=== PATIENT | female | born 1955 | race African-American/Black ===

== ENCOUNTER 2017-08-22 10:26 | Inpatient (IN) | payer OTHER ==
[2017-08-22 10:32] VITALS: BMI 32.3
[2017-08-22] MEDS ORDERED: ALBUTEROL SO4 2.5/IPRATROPIUM 0.5 INH SOL 3 ML VIAL.NEB. NEB ONE ×4 (10:43→12:59)
--- NOTE | 2017-08-22 10:50 | PDOC ---
History of Present Illness - General History Source: Patient Exam Limitations: No Limitations - History of Present Illness Initial Comments: 08/22/17 12:13 Pt is a 42 yo F with a PMHx of Asthma, HTN, HLD, Bladder CA who presents to the ED with SOB that began last week. Patient initially had cold-like symptoms with productive cough (yellow sputum). Patient saw her PMD and was given abx. Patient s symptoms have progressively worsened with no relief and was sent into the ED for further evaluation. Upon evaluation, patient has conversational dyspnea and was saturating on 90% on room air. Patient was placed on non rebreather. Allergies: hydrochlorothiazide, Ciprofloxacin Past surgical history: Bladder sx Social history: Current everyday smoker PCP: Dr. Odonnell <Catrina Stewart - Last Filed: 08/22/17 12:52> <Amarilis Bills - Last Filed: 08/22/17 12:57> - General Chief Complaint: Shortness of Breath Stated Complaint: SOB Time Seen by Provider: 08/22/17 10:49 Past History <Catrina Stewart - Last Filed: 08/22/17 12:52> - Past Medical History Anemia: No Asthma: Yes (SECONDARY TO BRONCHITIS) Cancer: Yes (BLADDER) Cardiac Disorders: No CVA: No COPD: No CHF: No Dementia: No Diabetes: No GI Disorders: No Disorders: No HTN: Yes Hypercholesterolemia: Yes Liver Disease: No Seizures: No Thyroid Disease: No - Surgical History Appendectomy: No Cardiac Surgery: No Cholecystectomy: No Lung Surgery: No Neurologic Surgery: No Orthopedic Surgery: No - Suicide/Smoking/Psychosocial Hx Smoking History: Current every day smoker Number of Cigarettes Smoked Daily: 5 Information on smoking cessation initiated: Yes 'Breaking Loose' booklet given: 08/22/17 Hx Alcohol Use: No Drug/Substance Use Hx: No Substance Use Type: None Hx Substance Use Treatment: No <Amarilis Bills - Last Filed: 08/22/17 12:57> - Past Medical History Allergies/Adverse Reactions: Allergies Allergy/AdvReac Type Severity Reaction Status Date / Time ciprofloxacin [From Cipro] Allergy Severe Itching Verified 08/22/17 10:32 ciprofloxacin HCl Allergy Severe Itching Verified 08/22/17 10:32 [From Cipro] hydrochlorothiazide Allergy Severe Itching Verified 08/22/17 10:32 Home Medications: Ambulatory Orders Albuterol Sulfate Inhaler - [Ventolin Hfa Inhaler -] 1 - 2 inh PO PRN PRN Amlodipine Besylate 10 mg PO DAILY 09/12/15 Atenolol [Tenormin -] 25 mg PO DAILY 09/12/15 Losartan Potassium 100 mg PO DAILY 09/12/15 Multivitamins [Tab-A-Vit -] 1 tab PO DAILY 09/12/15 Clarithromycin 500 mg PO DAILY 08/22/17 Review of Systems - Review of Systems Able to Perform ROS?: Yes Comments:: 08/22/17 12:13 GENERAL/CONSTITUTIONAL: No fever or chills. No weakness. HEAD, EYES, EARS, NOSE AND THROAT: No change in vision. No ear pain or discharge. No sore throat. CARDIOVASCULAR: No chest pain. +shortness of breath. RESPIRATORY: + cough, wheezing, SOB. +Conversational dyspnea. GASTROINTESTINAL: No nausea, vomiting, diarrhea or constipation. GENITOURINARY: No dysuria, frequency, or change in urination. MUSCULOSKELETAL: No joint or muscle swelling or pain. No neck or back pain. SKIN: No rash NEUROLOGIC: No headache, vertigo, loss of consciousness, or change in strength/ sensation. ENDOCRINE: No increased thirst. No abnormal weight change. HEMATOLOGIC/LYMPHATIC: No anemia, easy bleeding, or history of blood clots. ALLERGIC/IMMUNOLOGIC: No hives or skin allergy. <Catrina Stewart - Last Filed: 08/22/17 12:52> *Physical Exam - Vital Signs Last Vital Signs Temp Pulse Resp BP Pulse Ox 98.1 F 85 19 137/83 90 L 08/22/17 10:29 08/22/17 10:29 08/22/17 10:29 08/22/17 10:29 08/22/17 10:29 - Physical Exam Comments: 08/22/17 12:14 GENERAL: Awake, alert, and fully oriented, in no acute distress HEAD: No signs of trauma EYES: PERRLA, EOMI, sclera anicteric, conjunctiva clear ENT: Auricles normal inspection, hearing grossly normal, nares patent, oropharynx clear without exudates. Moist mucosa NECK: Normal ROM, supple, no lymphadenopathy, JVD, or masses LUNGS: +Rhonchi and wheezing diffusely bilaterally. Breath sounds equal, no crackles. HEART: +Tachycardic.Regular rhythm, normal S1 and S2, no murmurs, rubs or gallops ABDOMEN: Soft, nontender, normoactive bowel sounds. No guarding, no rebound. No masses EXTREMITIES: Normal range of motion. No clubbing or cyanosis. No cords, erythema , or tenderness. +Bilateral trace edema. NEUROLOGICAL: Cranial nerves II through XII grossly intact. Normal speech, normal gait SKIN: Warm, Dry, normal turgor, no rashes or lesions noted. <Catrina Stewart - Last Filed: 08/22/17 12:52> - Vital Signs Last Vital Signs Temp Pulse Resp BP Pulse Ox 98.1 F 85 19 137/83 90 L 08/22/17 10:29 08/22/17 10:29 08/22/17 10:29 08/22/17 10:29 08/22/17 10:29 <Amarilis Bills - Last Filed: 08/22/17 12:57> Heart Score/ECG Review - History History: Moderately suspicious - Electrocardiogram EKG: Non specific repolarization disturbance - Age Age: 45-65 - Risk Factors Risk Factors Heart Score: Yes Hx Hypercholesterolemia, Yes Hx Hypertension, Yes Smoking History, Yes Hx Obesity Based on the list above the patient has:: >/=3 risk factors or Hx atherosclerotic disease - ECG Intrepretation Comment:: 08/22/17 12:16 sinus at 77, t wave inversions inferior and anterior leads that are new from prior ekg, abnl ekg <Amarilis Bills - Last Filed: 08/22/17 12:57> ED Treatment Course - LABORATORY CBC & Chemistry Diagram: 08/22/17 11:18 08/22/17 12:00 - ADDITIONAL ORDERS Additional order review: Laboratory Results 08/22/17 08/22/17 11:22 11:18 Sodium Cancelled Potassium Cancelled Chloride Cancelled Carbon Dioxide Cancelled Anion Gap Cancelled BUN Cancelled Creatinine Cancelled Creat Clearance w eGFR Cancelled Random Glucose Cancelled Calcium Cancelled Magnesium Cancelled Total Bilirubin Cancelled AST Cancelled ALT Cancelled Alkaline Phosphatase Cancelled Creatine Kinase Cancelled Troponin I Cancelled B-Natriuretic Peptide Cancelled Cancelled Total Protein Cancelled Albumin Cancelled 08/22/17 11:18 RBC 4.50 MCV 91.3 MCHC 33.7 RDW 14.0 MPV 7.8 D Neutrophils % 66.4 Lymphocytes % 24.4 Monocytes % 8.1 Eosinophils % 0.7 Basophils % 0.4 - Medications Given in the ED: ED Medications Discontinued Medications Generic Name Dose Route Start Last Admin Trade Name Dereck PRN Reason Stop Dose Admin Albuterol/Ipratropium 1 amp 08/22/17 11:23 08/22/17 11:26 Duoneb - NEB 08/22/17 11:24 1 amp ONCE ONE Administration Methylprednisolone Sodium Succinate 125 mg 08/22/17 11:23 08/22/17 11:27 Solu-Medrol - IVPB 08/22/17 11:24 125 mg ONCE ONE Administration <Catrina Stewart - Last Filed: 08/22/17 12:52> - LABORATORY CBC & Chemistry Diagram: 08/22/17 11:18 08/22/17 12:00 <Amarilis Bills - Last Filed: 08/22/17 12:57> Medical Decision Making - Medical Decision Making 08/22/17 12:[address] SALAZAR PATIENTS CASE WAS DISCUSSED. <Catrina Stewart - Last Filed: 08/22/17 12:52> - Medical Decision Making 08/22/17 12:54 a/p: 62 yo female with cough, sob, resp distress hx of asthma and tobacco use -had 5 days of clarithromycin still with subjective fevers. -lab -ekg -cxr -nebs -reassess -steroids 08/22/17 12:55 Pt feeling better, still with sat 92% on 2L nc, still with conversational dyspnea despite 3 neb treatments. will admit -abx ordered. -case discussed with PMD who accepts pt to service. requests consult placed to Dr. Garrido. Pt agreeable to stay for further treatment. <Amarilis Bills - Last Filed: 08/22/17 12:57> *DC/Admit/Observation/Transfer - Attestations Scribe Attestion: 08/22/17 12:14 Documentation prepared by Catrina Stewart, acting as medical transcriber for Amarilis Bills DO <Catrina Stewart - Last Filed: 08/22/17 12:52> - Discharge Dispostion Admit: Yes - Attestations Physician Attestion: 08/22/17 12:57 I, Dr. Amarilis Bills, DO, attest that this document has been prepared under my direction and personally reviewed by me in its entirety. I further attest, that it accurately reflects all work, treatment, procedures and medical decision -making performed by me. <Amarilis Bills - Last Filed: 08/22/17 12:57> Diagnosis at time of Disposition: Mucopurulent chronic bronchitis - Discharge Dispostion Condition at time of disposition: Fair - Referrals Referrals: Bryan Odonnell MD [Primary Care Provider] -
[2017-08-22] MEDS ORDERED: methylPREDNISolone NA SUCC 125 MG/2 ML VIAL IVPB ONE (11:23)
[2017-08-22] MEDS ORDERED: methylPREDNISolone NA SUCC 125 MG/2 ML VIAL ONE (11:30)
[2017-08-22 11:46] LABS: BASOPHIL 0.4 % (0-2.0); EOSINOPHIL 0.7 % (0-4.5); MCH 30.8 pg (25.7-33.7); MCHC 33.7 g/dl (32.0-36.0); MEAN CELL VOLUME 91.3 fl (80-96); MEAN PLT VOLUME 7.8 fl (7.5-11.1); NEUTROPHILS 66.4 % (42.8-82.8); PLATELET COUNT 432 K/MM3 (134-434); WHITE BLOOD COUNT 10.9 K/mm3 (4.0-10.0)
[2017-08-22 12:30] LABS: MAGNESIUM 2.4 mg/dL (1.8-2.4)
[2017-08-22 12:31] LABS: ALBUMIN 3.9 g/dl (3.4-5.0); ANION GAP 7 (8-16); CO2 28 mmol/L (21-32); GLUCOSE,RANDOM 104 mg/dL (74-106)
[2017-08-22 12:32] LABS: TROPONIN I < 0.02 ng/ml (0.00-0.05)
[2017-08-22 12:38] LABS: ALK PHOS 108 U/L (45-117); BILIRUBIN,TOTAL 0.8 mg/dL (0.2-1.0); SGOT/AST 15 U/L (15-37); SGPT/ALT 21 U/L (12-78); TOT PROT 8.1 g/dl (6.4-8.2)
[2017-08-22] MEDS ORDERED: cefTRIAXone 1 GM/50 ML BAG (PRE-DOCKED) IVPB ONE (12:51)
[2017-08-22] MEDS ORDERED: AZITHROMYCIN IVPB 500 MG in DEXTROSE 5%-WATER - 250 ML IVPB ONE (12:53)
[2017-08-22] MEDS ORDERED: AZITHROMYCIN IVPB 250 ML IVPB ONE (12:59)
[2017-08-22] MEDS ORDERED: CEFTRIAXONE 50 ML ONE (12:59)
[2017-08-22] MEDS ORDERED: ALBUTEROL SO4 2.5/IPRATROPIUM 0.5 INH SOL 3 ML VIAL.NEB. NEB PRN (18:45)
[2017-08-22] MEDS: methylPREDNISolone NA SUCC 40 MG/1 ML VIAL IVPB SCH (19:03)
[2017-08-22] MEDS: ATORVASTATIN CA 10 MG TABLET (FP) PO SCH (21:38)
[2017-08-23] MEDS: methylPREDNISolone NA SUCC 40 MG/1 ML VIAL IVPB SCH ×3 (03:37→18:02)
[2017-08-23 07:09] LABS: BASOPHIL 0.1 % (0-2.0); MCH 29.9 pg (25.7-33.7); MCHC 32.4 g/dl (32.0-36.0); MEAN CELL VOLUME 92.3 fl (80-96); MEAN PLT VOLUME 7.2 fl (7.5-11.1); NEUTROPHILS 86.1 % (42.8-82.8); PLATELET COUNT 402 K/MM3 (134-434); RDW 13.7 % (11.6-15.6); WHITE BLOOD COUNT 13.8 K/mm3 (4.0-10.0)
[2017-08-23 07:30] LABS: ALBUMIN 3.6 g/dl (3.4-5.0); ANION GAP 12 (8-16); BILIRUBIN,TOTAL 0.4 mg/dL (0.2-1.0); CALCIUM 8.9 mg/dL (8.5-10.1); CO2 24 mmol/L (21-32); CREATININE 0.9 mg/dL (0.55-1.02); GLUCOSE,RANDOM 151 mg/dL (74-106); SGOT/AST 12 U/L (15-37); SGPT/ALT 21 U/L (12-78); TOT PROT 7.6 g/dl (6.4-8.2)
[2017-08-23 07:31] LABS: ALK PHOS 112 U/L (45-117)
[2017-08-23] MEDS ORDERED: ACETAMINOPHEN 325 MG TABLET (FP) PO PRN (08:42)
[2017-08-23] MEDS ORDERED: PT OWN MED DRAWER 7, Y5N ONE (09:05)
[2017-08-23] MEDS: LOSARTAN POTASSIUM 100 MG TABLET PO SCH (09:11)
[2017-08-23] MEDS: guaiFENesin 200 MG/10 ML 10 ML UNIT-DOSE CUPS PO SCH ×3 (09:12→21:58)
[2017-08-23] MEDS: ATENOLOL 25 MG TABLET (FP) PO SCH (09:12)
[2017-08-23] MEDS: amLODIPine BESYLATE 10 MG TABLET (FP) PO SCH (09:12)
[2017-08-23] MEDS: AZITHROMYCIN 500 MG TABLET PO SCH (09:12)
--- NOTE | 2017-08-23 09:39 | PN ---
Progress Note, Physician Chief Complaint: Pt lying in bed,feels better,wheezing still present afebrile Pulmonary consult pending - Current Medication List Current Medications: Active Medications Acetaminophen (Tylenol -) 650 mg PO Q6H PRN PRN Reason: FEVER OR PAIN Last Admin: 08/23/17 09:12 Dose: 650 mg Albuterol/Ipratropium (Duoneb -) 1 amp NEB Q6H PRN PRN Reason: INHALATION Amlodipine Besylate (Norvasc -) 10 mg PO DAILY [facility] Last Admin: 08/23/17 09:12 Dose: 10 mg Atenolol (Tenormin -) 25 mg PO DAILY [facility] Last Admin: 08/23/17 09:12 Dose: 25 mg Atorvastatin Calcium (Lipitor -) 10 mg PO HS [facility] Last Admin: 08/22/17 21:38 Dose: Not Given Azithromycin (Azithromycin) 500 mg PO DAILY [facility] Last Admin: 08/23/17 09:12 Dose: 500 mg Guaifenesin (Robitussin -) 10 ml PO TID [facility] Last Admin: 08/23/17 09:12 Dose: 10 ml Losartan Potassium (Losartan Potassium) 100 mg PO DAILY [facility] Last Admin: 08/23/17 09:11 Dose: 100 mg Methylprednisolone Sodium Succinate (Solu-Medrol -) 60 mg IVPB Q8H [facility] Last Admin: 08/23/17 03:37 Dose: 60 mg - Objective Vital Signs: Vital Signs Temperature 98.1 F 08/23/17 02:14 Pulse Rate 102 H 08/23/17 06:00 Respiratory Rate 20 08/23/17 06:00 Blood Pressure 140/86 08/23/17 06:00 O2 Sat by Pulse Oximetry (%) 95 08/22/17 21:00 Constitutional: Yes: No Distress Eyes: Yes: Conjunctiva Clear HENT: Yes: Atraumatic, Normocephalic Neck: Yes: Supple, Trachea Midline Cardiovascular: Yes: Regular Rate and Rhythm Respiratory: Yes: Regular, Cough, Rhonchi, SOB on Exertion, Wheezes Gastrointestinal: Yes: Normal Bowel Sounds, Soft Musculoskeletal: Yes: WNL Extremities: Yes: WNL Edema: No Peripheral Pulses WNL: Yes Neurological: Yes: Alert, Oriented Psychiatric: Yes: WNL Labs: CBC, BMP 08/23/17 06:30 08/23/17 06:30 - ....Imaging X-ray: Report Reviewed EKG: Report Reviewed Assessment/Plan SOB,?COPD excacerbation Leukocytosis HTN Hypercholestrolemis S/p bladder CA PLAN COntinue Bronchodialators Continue IV steroids,antibiotics and Oxygen Pulmonary consult pending
--- NOTE | 2017-08-23 09:45 | HP ---
DATE OF ADMISSION: DATE OF DICTATION: 08/23/2017 HISTORY OF PRESENT ILLNESS: This is a 62-year-old female with past medical history of hypertension, hyperlipidemia, bladder cancer, chronic smoker, who came to the emergency room for shortness of breath. As per the patient, she began last week and symptom with a productive cough. Cough is associated with yellow sputum. Patient was seen in the primary physicians office and started on Biaxin and cough syrup. Since symptoms were progressively worsened with no relief with the medications, so, she was referred to the emergency room for further evaluation and treatment. In the emergency room, patients oxygen saturation was 90% on room air and was placed on a rebreather. PAST MEDICAL HISTORY: Hypertension, recurrent bronchitis, hyperlipidemia, bladder cancer. SURGICAL HISTORY: Bladder surgery. PERSONAL HISTORY: Every-day smoker. Patient had symptoms of recurrent bronchitis. ALLERGIES: To CIPRO and HYDROCHLOROTHIAZIDE. MEDICATIONS: She is on losartan 100 mg daily, amlodipine 10 mg daily, atenolol 25 mg p.o. daily, Zocor 10 mg daily, and Biaxin. REVIEW OF SYSTEMS: General symptoms: No fever. Respiratory: Cough and wheezing, shortness of breath, and conversational dyspnea present. Cardiovascular: History of hypertension and hypocholesterolemia. Central nervous system: Nothing significant. Genitourinary: History of bladder cancer and treatment. Musculoskeletal: Nothing significant. PHYSICAL EXAMINATION: Vital signs: Examination of the patient in the emergency room showed temperature 98.1, pulse rate 85 per minute, respirations 19, blood pressure 137/83, room air saturation was 90. General: Patient was having moderate distress in the ER. Neck: Supple. No JVD. Chest: Bilateral wheezing and rhonchi present. Cardiovascular: Tachycardia, no murmur, 1st and 2nd sound normal. Abdomen: Soft, no tenderness, no distension. Bowel sounds present. Extremities: Mild pedal edema present. Central nervous system. Alert and oriented x3. No apparent motor or sensory deficit. Reflex normal. Cranial nerves normal. Musculoskeletal: No significant findings. Normal. LABORATORIES: CBC shows WBC 10.9, hemoglobin 13.9, hematocrit 41.1, platelets 432. CMP normal. AST/ALT normal. Troponin less than 0.2. BNP 48.95. Chest x-ray no infiltrate, records show no growth. Preliminary testing. EKG nonspecific T-wave changes in inferior and anterior leads. Patient was given Duo-Neb and Solu-Medrol 125 mg IV in the emergency room and saturation went up to 92% on 2 L of oxygen. Patient was admitted in the telemetry bed. ADMITTING DIAGNOSIS: Shortness of breath, rule out chronic obstructive pulmonary disease exacerbation, hypertension. PLAN: Duo-Neb every q.6 hourly p.r.n., pulmonary consult, cardiology consult, home medications resumed, nasal oxygen 2%, repeat labs. Patient is stable on the floor. Sara [id number]
--- NOTE | 2017-08-23 10:44 | CON.CARD ---
Consult Consult Specialty:: Cardiology Referred by:: Bryan Odonnell MD Reason for Consultation:: Dyspnea - History of Present Illness Chief Complaint: Dyspnea History of Present Illness: Pt is a 42 yo F with a PMHx of Asthma, HTN, HLD, Bladder CA, tobacco abuse ( last 2 weeks) who presents to the ED with SOB that began last week. Patient initially had cold-like symptoms with productive cough (yellow sputum) and wheezing. Patient saw her PMD and was given abx. Patients symptoms have progressively worsened with no relief despite outpatient therapy and was sent into the ED for further evaluation. She reports relief of dyspnea and wheezing with frequent nebulizers. Allergies: hydrochlorothiazide, Ciprofloxacin Past surgical history: Bladder sx Social history: Current everyday smoker PCP: Dr. Odonnell - History Source History Provided By: Patient Limitations to Obtaining History: No Limitations - Past Medical History Cardio/Vascular: Yes: HTN Pulmonary: Yes: Bronchitis - Alcohol/Substance Use Hx Alcohol Use: No - Smoking History Smoking history: Current every day smoker Have you smoked in the past 12 months: Yes Aproximately how many cigarettes per day: 5 Home Medications - Allergies Allergies/Adverse Reactions: Allergies Allergy/AdvReac Type Severity Reaction Status Date / Time ciprofloxacin [From Cipro] Allergy Severe Itching Verified 08/22/17 10:32 ciprofloxacin HCl Allergy Severe Itching Verified 08/22/17 10:32 [From Cipro] hydrochlorothiazide Allergy Severe Itching Verified 08/22/17 10:32 - Home Medications Home Medications: Ambulatory Orders Albuterol Sulfate Inhaler - [Ventolin Hfa Inhaler -] 1 - 2 inh PO PRN PRN Amlodipine Besylate 10 mg PO DAILY 09/12/15 Atenolol [Tenormin -] 25 mg PO DAILY 09/12/15 Losartan Potassium 100 mg PO DAILY 09/12/15 Multivitamins [Tab-A-Vit -] 1 tab PO DAILY 09/12/15 Clarithromycin 500 mg PO DAILY 08/22/17 Review of Systems - Review of Systems Cardiovascular: reports: Shortness of Breath Respiratory: reports: Cough, Wheezing Vital Signs: Vital Signs Temperature 98.1 F 08/23/17 02:14 Pulse Rate 102 H 08/23/17 06:00 Respiratory Rate 20 08/23/17 06:00 Blood Pressure 140/86 08/23/17 06:00 O2 Sat by Pulse Oximetry (%) 95 08/22/17 21:00 Constitutional: Yes: No Distress, Calm Neck: Yes: Supple Respiratory: Yes: Regular, Diminished, On Nasal O2 Gastrointestinal: Yes: Normal Bowel Sounds, Soft, Abdomen, Obese Cardiovascular: Yes: Regular Rate and Rhythm JVD: No Carotid Bruit: No Heart Sounds: Yes: S1, S2 Edema: No - Other Data Labs, Other Data: CBC, BMP 08/23/17 06:30 08/23/17 06:30 Pending Imaging - Results Chest X-ray: Report Reviewed (NAD) Problem List - Problems (1) Acute exacerbation of chronic obstructive airways disease with asthma Code(s): J44.1 - CHRONIC OBSTRUCTIVE PULMONARY DISEASE W (ACUTE) EXACERBATION J45.901 - UNSPECIFIED ASTHMA WITH (ACUTE) EXACERBATION (2) Hypertensive cardiovascular disease Code(s): I11.9 - HYPERTENSIVE HEART DISEASE WITHOUT HEART FAILURE Qualifiers: Heart failure presence: without heart failure Qualified Code(s): I11.9 - Hypertensive heart disease without heart failure; I11.9 - Hypertensive heart disease without heart failure; I11.9 - Hypertensive heart disease without heart failure (3) Leukocytosis Code(s): D72.829 - ELEVATED WHITE BLOOD CELL COUNT, UNSPECIFIED Qualifiers: Leukocytosis type: unspecified Qualified Code(s): D72.829 - Elevated white blood cell count, unspecified; D72.829 - Elevated white blood cell count, unspecified (4) Tobacco abuse counseling Code(s): Z71.6 - TOBACCO ABUSE COUNSELING (5) Hyperlipidemia Code(s): E78.5 - HYPERLIPIDEMIA, UNSPECIFIED Qualifiers: Hyperlipidemia type: pure hypercholesterolemia Qualified Code(s): E78.00 - Pure hypercholesterolemia, unspecified; E78.00 - Pure hypercholesterolemia, unspecified; E78.00 - Pure hypercholesterolemia, unspecified; E78.0 - Pure hypercholesterolemia Assessment/Plan 1. Acute exacerbation of COPD preceded by URI 2. Former smoker last 2 weeks ago 3. HTN/HCVD 4. OSAS suspect 5. Hyperlipidemia P:1. BD, O2 to maintain saO2, steroids, empiric abx 2. PFTs and PSG as outpatient 3. Tobacco abstinence 4. Continue Norvasc 10 qd, Atenolol 25 qd, losartan 100 qd and Lipitor 10 qd 4. Thank you for consultative opportunity
--- NOTE | 2017-08-23 11:16 | CONSULT ---
Consultation: REQUESTING PROVIDER: Dr. Odonnell CONSULT REQUEST: PULMONARY We have been asked to medically evaluate this patient for bronchitis, COPD. HISTORY OF PRESENT ILLNESS: 42 y/o F with PMH asthma (since childhood, never intubated), chronic bronchitis (since childhood, never hospitalized for, frequent episodes as a child), HTN, HLD, bladder CA (dx 2015), who came to the ED with SOB x past 2 weeks. As per pt, last Saturday she felt as if she had a "cold coming on." She developed a productive cough with copious amounts of yellow mucus (without blood), aching joints, and SOB at rest. Pt started to miss work, so she decided to go to her PMD (Dr. Odonnell), who gave her a Breo sample and a twelve-day course of antibiotics. Pt states that it was clarithromycin. However, she continued to have SOB and productive cough, so she saw her PMD again on 08/21/17, and was told to go to the ED. Pt's symptoms were a/w chills, headache, wheezing, and a + sick contact at work who had similar sx. Denied N/V/D/C. While in the ED, pt's 02 sat was 90 and she was put on a non-rebreather mask. She was afebrile. EKG was done which showed T wave inversions in leads 3 and avF. She received 3 neb tx, solumedrol 125 mg IVPB x 1, 1 dose of Rocephin and zithromax. Today, pt states that her cough is productive of clear sputum. She is still wheezing and feels SOB with exertion. Denies headache, fever, chills, or any changes in urinary or bowel function, currently. 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 Smoking hx: has smoked for 30 years, 1/2 ppd REVIEW OF SYSTEMS: CONSTITUTIONAL: Absent: fever, chills, diaphoresis, generalized weakness, malaise, loss of appetite, weight change HEENT: Absent: rhinorrhea, nasal congestion, throat pain, throat swelling, difficulty swallowing, mouth swelling, ear pain, eye pain, visual changes CARDIOVASCULAR: Absent: chest pain, syncope, palpitations, irregular heart rate, lightheadedness , peripheral edema RESPIRATORY: +SOB, +cough Absent: cough, shortness of breath, dyspnea with exertion, orthopnea, wheezing, stridor, hemoptysis GASTROINTESTINAL: Absent: abdominal pain, abdominal distension, nausea, vomiting, diarrhea, constipation, melena, hematochezia GENITOURINARY: Absent: dysuria, frequency, urgency, hesitancy, hematuria, flank pain, genital pain MUSCULOSKELETAL: Absent: myalgia, arthralgia, joint swelling, back pain, neck pain SKIN: Absent: rash, itching, pallor HEMATOLOGIC/IMMUNOLOGIC: Absent: easy bleeding, easy bruising, lymphadenopathy, frequent infections ENDOCRINE: Absent: unexplained weight gain, unexplained weight loss, heat intolerance, cold intolerance NEUROLOGIC: Absent: headache, focal weakness or paresthesias, dizziness, unsteady gait, seizure, mental status changes, bladder or bowel incontinence PSYCHIATRIC: Absent: anxiety, depression, suicidal or homicidal ideation, hallucinations. PHYSICAL EXAMINATION Vital Signs - 24 hr 08/22/17 08/22/17 08/22/17 13:51 16:03 18:00 Temperature 98.2 F 98.5 F 98.2 F Pulse Rate 76 Pulse Rate [ 77 80 Left Apical] Respiratory 18 18 18 Rate Blood Pressure 142/68 Blood Pressure 117/75 137/75 [Left Arm] O2 Sat by Pulse 97 99 99 Oximetry (%) 08/22/17 08/22/17 08/23/17 21:00 22:00 02:14 Temperature 98.6 F 98.1 F Pulse Rate 103 H 100 H Pulse Rate [ Left Apical] Respiratory 20 20 Rate Blood Pressure 147/83 153/91 Blood Pressure [Left Arm] O2 Sat by Pulse 95 Oximetry (%) 08/23/17 06:00 Temperature Pulse Rate 102 H Pulse Rate [ Left Apical] Respiratory 20 Rate Blood Pressure 140/86 Blood Pressure [Left Arm] O2 Sat by Pulse Oximetry (%) GENERAL: Awake, alert, and fully oriented, in no acute distress. Not on 02 HEAD: Normal with no signs of trauma. EYES: Pupils equal, round and reactive to light, extraocular movements intact, sclera anicteric, conjunctiva clear. NECK: Normal range of motion, supple without lymphadenopathy, JVD, or masses. LUNGS: wheezing appreciated b/l HEART: Regular rate and rhythm, normal S1 and S2 without murmur, rub or gallop. ABDOMEN: Soft, nontender, not distended, normoactive bowel sounds, no guarding, no rebound, no masses. MUSCULOSKELETAL: Normal range of motion at all joints. No bony deformities or tenderness. UPPER EXTREMITIES: 2+ radial pulses, warm, well-perfused. No cyanosis. No clubbing. LOWER EXTREMITIES: 2+ posterior tibial pulses, warm, well-perfused. No calf tenderness. trace edema LLE NEUROLOGICAL: Cranial nerves II-XII intact. Laboratory Results - last 24 hr 08/23/17 08/23/17 06:30 06:30 WBC 13.8 H RBC 4.28 Hgb 12.8 Hct 39.5 MCV 92.3 MCH 29.9 MCHC 32.4 RDW 13.7 Plt Count 402 MPV 7.2 L Neutrophils % 86.1 H D Lymphocytes % 11.2 D Monocytes % 2.6 L Eosinophils % 0.0 D Basophils % 0.1 Sodium 140 Potassium 4.4 Chloride 104 Carbon Dioxide 24 Anion Gap 12 BUN 22 H D Creatinine 0.9 Creat Clearance w eGFR > 60 Random Glucose 151 H D Calcium 8.9 Total Bilirubin 0.4 D AST 12 L ALT 21 Alkaline Phosphatase 112 Total Protein 7.6 Albumin 3.6 Active Medications Generic Name Dose Route Start Last Admin Trade Name Freq PRN Reason Stop Dose Admin Acetaminophen 650 mg 08/23/17 08:42 08/23/17 09:12 Tylenol - PO 650 mg Q6H PRN Administration FEVER OR PAIN Albuterol/Ipratropium 1 amp 08/22/17 18:45 Duoneb - NEB Q6H PRN INHALATION Amlodipine Besylate 10 mg 08/23/17 10:00 08/23/17 09:12 Norvasc - PO 10 mg DAILY ZEESHAN Administration Atenolol 25 mg 08/23/17 10:00 08/23/17 09:12 Tenormin - PO 25 mg DAILY ZEESHAN Administration Atorvastatin Calcium 10 mg 08/22/17 22:00 08/22/17 21:38 Lipitor - PO Not Given HS [facility] Azithromycin 500 mg 08/23/17 10:00 08/23/17 09:12 Azithromycin PO 500 mg DAILY ZEEHSAN Administration Guaifenesin 10 ml 08/23/17 09:15 08/23/17 09:12 Robitussin - PO 10 ml TID ZEESHAN Administration Losartan Potassium 100 mg 08/23/17 10:00 08/23/17 09:11 Losartan Potassium PO 100 mg DAILY ZEESHAN Administration Methylprednisolone Sodium Succinate 60 mg 08/22/17 19:00 08/23/17 03:37 Solu-Medrol - IVPB 60 mg Q8H ZEESHAN Administration ASSESSMENT/PLAN: 42 y/o F with PMH asthma (since childhood, never intubated), chronic bronchitis (since childhood, never hospitalized for, frequent episodes as a child), HTN, HLD, bladder CA (dx 2014), who came to the ED with SOB x past 2 weeks. Pt admitted for possible COPD exacerbation. #COPD exacerbation 2/2 URI -pt feels improved, however still wheezing b/l, SOB on exertion, 02 sat 95% on RA -most likely viral etiology, would d/c abx -continue solumedrol 60mg IVPB q8h, steady taper -continue Duonebs PRN -Robitussin PRN -PFTs as outpatient -smoking cessation -sleep screen -recommend annual chest CT-lung CA screening d/t pt's significant smoking hx Discussed plan with Drs. Matamoros and Tamara. Thank you! Kelley Reich MD PGY-1 Dispo: We will continue to follow the patient. Thank you for this consultative opportunity. Visit type - Emergency Visit Emergency Visit: No - New Patient This patient is new to me today: Yes Date on this admission: 08/23/17 - Critical Care Critical Care patient: No
--- NOTE | 2017-08-23 11:50 | PN ---
Teaching Attending Note Name of Resident: Kelley Reich ATTENDING PHYSICIAN STATEMENT I saw and evaluated the patient. I reviewed the resident's note and discussed the case with the resident. I agree with the resident's findings and plan as documented. PULMONARY IMP ASTHMA/COPD EXACERBATION URI H/O BLADDER CA S/P SURGERY HTN HLD LIKELY OSAS SMOKER PLAN IV STEROIDS INHALED BRONCHODILATORS O2 PFS OUTPATIENT MONITOR PEAK FLOW CHEST CT YEARLY LOW DOSE FOR LUNG CANCER SCREENING SLEEP SCREEN SMOKING CESSATION COUNSELED DR LAM
[2017-08-23] MEDS ORDERED: ALBUTEROL SO4 0.083% IH SOL 2.5 MG/3 ML VIAL.NEB. NEB PRN (12:42)
[2017-08-23] MEDS: TIOTROPIUM BROMIDE 18 MCG/INH (DEVICE W/ 5 CAPSULES) IH SCH (15:57)
[2017-08-23] MEDS: BUDESONIDE/FORMETEROL FUMARATE 160/4.5 mcg INHALER IH SCH ×2 (15:57→21:58)
[2017-08-23] MEDS: ATORVASTATIN CA 10 MG TABLET (FP) PO SCH (21:57)
[2017-08-24] MEDS: methylPREDNISolone NA SUCC 40 MG/1 ML VIAL IVPB SCH ×3 (03:37→18:06)
[2017-08-24] MEDS: guaiFENesin 200 MG/10 ML 10 ML UNIT-DOSE CUPS PO SCH ×3 (05:52→21:46)
[2017-08-24 07:03] LABS: BASOPHIL 0.1 % (0-2.0); MCH 30.1 pg (25.7-33.7); MCHC 32.8 g/dl (32.0-36.0); MEAN CELL VOLUME 91.8 fl (80-96); NEUTROPHILS 88.1 % (42.8-82.8); PLATELET COUNT 443 K/MM3 (134-434); RDW 13.8 % (11.6-15.6); WHITE BLOOD COUNT 19.4 K/mm3 (4.0-10.0)
--- NOTE | 2017-08-24 08:43 | PN ---
Progress Note, Physician Chief Complaint: Pt lying in bed,feels better,wheezing still present afebrile Pulmonary consult appreciated - Current Medication List Current Medications: Active Medications Acetaminophen (Tylenol -) 650 mg PO Q6H PRN PRN Reason: FEVER OR PAIN Last Admin: 08/23/17 09:12 Dose: 650 mg Albuterol Sulfate (Ventolin 0.083% Nebulizer Soln -) 1 amp NEB Q4H PRN PRN Reason: SHORT OF BREATH/WHEEZING Last Admin: 08/24/17 06:42 Dose: 1 amp Amlodipine Besylate (Norvasc -) 10 mg PO DAILY [facility] Last Admin: 08/23/17 09:12 Dose: 10 mg Atenolol (Tenormin -) 25 mg PO DAILY [facility] Last Admin: 08/23/17 09:12 Dose: 25 mg Atorvastatin Calcium (Lipitor -) 10 mg PO HS [facility] Last Admin: 08/23/17 21:57 Dose: 10 mg Azithromycin (Azithromycin) 500 mg PO DAILY [facility] Last Admin: 08/23/17 09:12 Dose: 500 mg Budesonide/Formoterol Fumarate (Symbicort 160/4.5mcg -) 2 puff IH BID [facility] Last Admin: 08/23/17 21:58 Dose: 2 puff Guaifenesin (Robitussin -) 10 ml PO TID [facility] Last Admin: 08/24/17 05:52 Dose: 10 ml Losartan Potassium (Losartan Potassium) 100 mg PO DAILY [facility] Last Admin: 08/23/17 09:11 Dose: 100 mg Methylprednisolone Sodium Succinate (Solu-Medrol -) 60 mg IVPB Q8H [facility] Last Admin: 08/24/17 03:37 Dose: 60 mg Tiotropium [place] (Spiriva -) 1 puff IH DAILY [facility] Last Admin: 08/23/17 15:57 Dose: 1 puff - Objective Vital Signs: Vital Signs Temperature 98.7 F 08/24/17 05:53 Pulse Rate 88 08/24/17 05:53 Respiratory Rate 20 08/24/17 05:53 Blood Pressure 140/88 08/24/17 05:53 O2 Sat by Pulse Oximetry (%) 100 08/23/17 20:58 Constitutional: Yes: No Distress Eyes: Yes: Conjunctiva Clear HENT: Yes: Atraumatic Neck: Yes: Supple, Trachea Midline Cardiovascular: Yes: Regular Rate and Rhythm Respiratory: Yes: Regular, Wheezes Gastrointestinal: Yes: Normal Bowel Sounds, Soft Musculoskeletal: Yes: WNL Extremities: Yes: WNL Edema: No Peripheral Pulses WNL: Yes Integumentary: Yes: WNL Neurological: Yes: WNL, Alert Psychiatric: Yes: WNL, Alert Labs: CBC, BMP 08/24/17 05:10 08/23/17 06:30 - ....Imaging X-ray: Report Reviewed Assessment/Plan SOB,?COPD excacerbation/asthma Leukocytosis ?steroid induced HTN Hypercholestrolemis S/p bladder CA PLAN lsmoking cessation COntinue Bronchodialators Continue IV steroids,antibiotics and Oxygen will f/u Pulmonary rec
[2017-08-24] MEDS ORDERED: PT OWN MED DRAWER 7, Y5N ONE (09:44)
--- NOTE | 2017-08-24 09:49 | PN ---
Progress Note, Physician History of Present Illness: pulmonary alert,feeling better,less dyspneic,+cough. sleep screen + olivia AHI 24 - Current Medication List Current Medications: Active Medications Acetaminophen (Tylenol -) 650 mg PO Q6H PRN PRN Reason: FEVER OR PAIN Last Admin: 08/23/17 09:12 Dose: 650 mg Albuterol Sulfate (Ventolin 0.083% Nebulizer Soln -) 1 amp NEB Q4H PRN PRN Reason: SHORT OF BREATH/WHEEZING Last Admin: 08/24/17 06:42 Dose: 1 amp Amlodipine Besylate (Norvasc -) 10 mg PO DAILY [facility] Last Admin: 08/23/17 09:12 Dose: 10 mg Atenolol (Tenormin -) 25 mg PO DAILY [facility] Last Admin: 08/23/17 09:12 Dose: 25 mg Atorvastatin Calcium (Lipitor -) 10 mg PO HS [facility] Last Admin: 08/23/17 21:57 Dose: 10 mg Azithromycin (Azithromycin) 500 mg PO DAILY [facility] Last Admin: 08/23/17 09:12 Dose: 500 mg Budesonide/Formoterol Fumarate (Symbicort 160/4.5mcg -) 2 puff IH BID [facility] Last Admin: 08/23/17 21:58 Dose: 2 puff Guaifenesin (Robitussin -) 10 ml PO TID [facility] Last Admin: 08/24/17 05:52 Dose: 10 ml Losartan Potassium (Losartan Potassium) 100 mg PO DAILY [facility] Last Admin: 08/23/17 09:11 Dose: 100 mg Methylprednisolone Sodium Succinate (Solu-Medrol -) 60 mg IVPB Q8H [facility] Last Admin: 08/24/17 03:37 Dose: 60 mg Tiotropium [place] (Spiriva -) 1 puff IH DAILY [facility] Last Admin: 08/23/17 15:57 Dose: 1 puff - Objective Vital Signs: Vital Signs Temperature 98.7 F 08/24/17 05:53 Pulse Rate 88 08/24/17 05:53 Respiratory Rate 20 08/24/17 05:53 Blood Pressure 140/88 08/24/17 05:53 O2 Sat by Pulse Oximetry (%) 100 08/23/17 20:58 Constitutional: Yes: Well Nourished, Calm Eyes: Yes: WNL HENT: Yes: WNL Neck: Yes: WNL Respiratory: Yes: Wheezes (scattered michel wheezes) Gastrointestinal: Yes: Normal Bowel Sounds, Soft Extremities: Yes: WNL Edema: No Labs: CBC, BMP 08/24/17 05:10 08/23/17 06:30 Problem List - Problems (1) Acute exacerbation of chronic obstructive airways disease with asthma Code(s): J44.1 - CHRONIC OBSTRUCTIVE PULMONARY DISEASE W (ACUTE) EXACERBATION J45.901 - UNSPECIFIED ASTHMA WITH (ACUTE) EXACERBATION (2) Hypertensive cardiovascular disease Code(s): I11.9 - HYPERTENSIVE HEART DISEASE WITHOUT HEART FAILURE Qualifiers: Heart failure presence: without heart failure Qualified Code(s): I11.9 - Hypertensive heart disease without heart failure; I11.9 - Hypertensive heart disease without heart failure; I11.9 - Hypertensive heart disease without heart failure (3) Tobacco abuse counseling Code(s): Z71.6 - TOBACCO ABUSE COUNSELING (4) Sleep apnea Code(s): G47.30 - SLEEP APNEA, UNSPECIFIED Qualifiers: Sleep apnea type: obstructive Qualified Code(s): G47.33 - Obstructive sleep apnea (adult) (pediatric); G47.33 - Obstructive sleep apnea ( adult) (pediatric) Assessment/Plan IMP ASTHMA/COPD EXACERBATION URI H/O BLADDER CA S/P SURGERY HTN HLD OSAS SMOKER PLAN CONTINUE IV STEROIDS INHALED BRONCHODILATORS O2 PFS OUTPATIENT MONITOR PEAK FLOW CHEST CT SMOKING CESSATION COUNSELED CPAP TITRATION OUTPATIENT DR LAM
[2017-08-24] MEDS: AZITHROMYCIN 500 MG TABLET PO SCH (09:55)
[2017-08-24] MEDS: ATENOLOL 25 MG TABLET (FP) PO SCH (09:56)
[2017-08-24] MEDS: LOSARTAN POTASSIUM 100 MG TABLET PO SCH (09:56)
[2017-08-24] MEDS: amLODIPine BESYLATE 10 MG TABLET (FP) PO SCH (09:56)
[2017-08-24] MEDS: BUDESONIDE/FORMETEROL FUMARATE 160/4.5 mcg INHALER IH SCH ×2 (09:57→22:03)
[2017-08-24] MEDS: TIOTROPIUM BROMIDE 18 MCG/INH (DEVICE W/ 5 CAPSULES) IH SCH (09:57)
--- NOTE | 2017-08-24 10:27 | PN ---
Progress Note, Physician History of Present Illness: Dyspnea, cough and wheezes improving with treatment. - Current Medication List Current Medications: Active Medications Acetaminophen (Tylenol -) 650 mg PO Q6H PRN PRN Reason: FEVER OR PAIN Last Admin: 08/23/17 09:12 Dose: 650 mg Albuterol Sulfate (Ventolin 0.083% Nebulizer Soln -) 1 amp NEB Q4H PRN PRN Reason: SHORT OF BREATH/WHEEZING Last Admin: 08/24/17 06:42 Dose: 1 amp Amlodipine Besylate (Norvasc -) 10 mg PO DAILY [facility] Last Admin: 08/24/17 09:56 Dose: 10 mg Atenolol (Tenormin -) 25 mg PO DAILY [facility] Last Admin: 08/24/17 09:56 Dose: 25 mg Atorvastatin Calcium (Lipitor -) 10 mg PO HS [facility] Last Admin: 08/23/17 21:57 Dose: 10 mg Azithromycin (Azithromycin) 500 mg PO DAILY [facility] Last Admin: 08/24/17 09:55 Dose: 500 mg Budesonide/Formoterol Fumarate (Symbicort 160/4.5mcg -) 2 puff IH BID [facility] Last Admin: 08/24/17 09:57 Dose: 2 puff Guaifenesin (Robitussin -) 10 ml PO TID [facility] Last Admin: 08/24/17 05:52 Dose: 10 ml Losartan Potassium (Losartan Potassium) 100 mg PO DAILY [facility] Last Admin: 08/24/17 09:56 Dose: 100 mg Methylprednisolone Sodium Succinate (Solu-Medrol -) 60 mg IVPB Q8H [facility] Last Admin: 08/24/17 10:03 Dose: 60 mg Tiotropium [place] (Spiriva -) 1 puff IH DAILY [facility] Last Admin: 08/24/17 09:57 Dose: 1 puff - Objective Vital Signs: Vital Signs Temperature 98.7 F 08/24/17 05:53 Pulse Rate 88 08/24/17 05:53 Respiratory Rate 20 08/24/17 05:53 Blood Pressure 140/88 08/24/17 05:53 O2 Sat by Pulse Oximetry (%) 100 08/23/17 20:58 Constitutional: Yes: No Distress, Calm Neck: Yes: Supple Cardiovascular: Yes: Regular Rate and Rhythm Respiratory: Yes: Regular, Diminished, On Nasal O2 Gastrointestinal: Yes: Normal Bowel Sounds, Soft, Abdomen, Obese Edema: No Labs: CBC, BMP 08/24/17 05:10 08/23/17 06:30 Problem List - Problems (1) Acute exacerbation of chronic obstructive airways disease with asthma Code(s): J44.1 - CHRONIC OBSTRUCTIVE PULMONARY DISEASE W (ACUTE) EXACERBATION J45.901 - UNSPECIFIED ASTHMA WITH (ACUTE) EXACERBATION (2) Hypertensive cardiovascular disease Code(s): I11.9 - HYPERTENSIVE HEART DISEASE WITHOUT HEART FAILURE Qualifiers: Heart failure presence: without heart failure Qualified Code(s): I11.9 - Hypertensive heart disease without heart failure; I11.9 - Hypertensive heart disease without heart failure; I11.9 - Hypertensive heart disease without heart failure (3) Leukocytosis Code(s): D72.829 - ELEVATED WHITE BLOOD CELL COUNT, UNSPECIFIED Qualifiers: Leukocytosis type: unspecified Qualified Code(s): D72.829 - Elevated white blood cell count, unspecified; D72.829 - Elevated white blood cell count, unspecified (4) Tobacco abuse counseling Code(s): Z71.6 - TOBACCO ABUSE COUNSELING (5) Hyperlipidemia Code(s): E78.5 - HYPERLIPIDEMIA, UNSPECIFIED Qualifiers: Hyperlipidemia type: pure hypercholesterolemia Qualified Code(s): E78.00 - Pure hypercholesterolemia, unspecified; E78.00 - Pure hypercholesterolemia, unspecified; E78.00 - Pure hypercholesterolemia, unspecified; E78.0 - Pure hypercholesterolemia (6) Sleep apnea Code(s): G47.30 - SLEEP APNEA, UNSPECIFIED Qualifiers: Sleep apnea type: obstructive Qualified Code(s): G47.33 - Obstructive sleep apnea (adult) (pediatric); G47.33 - Obstructive sleep apnea ( adult) (pediatric) Assessment/Plan 1. Acute exacerbation of asthmatic COPD preceded by URI 2. Former smoker last 2 weeks ago 3. HTN/HCVD 4. OSAS AHI 24 5. Hyperlipidemia P:1. BD, O2 to maintain saO2, IV steroids, empiric abx 2. PFTs and cpap titration as outpatient 3. Tobacco abstinence 4. Continue Norvasc 10 qd, Atenolol 25 qd, losartan 100 qd and Lipitor 10 qd 5. May transfer off monitored floor
[2017-08-24] MEDS: ATORVASTATIN CA 10 MG TABLET (FP) PO SCH (21:46)
[2017-08-25] MEDS: methylPREDNISolone NA SUCC 40 MG/1 ML VIAL IVPB SCH ×3 (03:04→22:38)
[2017-08-25] MEDS: guaiFENesin 200 MG/10 ML 10 ML UNIT-DOSE CUPS PO SCH ×3 (06:20→22:38)
[2017-08-25 07:20] LABS: MCH 29.9 pg (25.7-33.7); MCHC 32.4 g/dl (32.0-36.0); MEAN PLT VOLUME 7.2 fl (7.5-11.1); PLATELET COUNT 507 K/MM3 (134-434); RDW 13.7 % (11.6-15.6); WHITE BLOOD COUNT 18.7 K/mm3 (4.0-10.0)
[2017-08-25] MEDS: AZITHROMYCIN 500 MG TABLET PO SCH (09:07)
[2017-08-25] MEDS: LOSARTAN POTASSIUM 100 MG TABLET PO SCH (09:07)
[2017-08-25] MEDS: amLODIPine BESYLATE 10 MG TABLET (FP) PO SCH (09:07)
[2017-08-25] MEDS: ATENOLOL 25 MG TABLET (FP) PO SCH (09:07)
[2017-08-25] MEDS: TIOTROPIUM BROMIDE 18 MCG/INH (DEVICE W/ 5 CAPSULES) IH SCH (09:08)
[2017-08-25] MEDS: BUDESONIDE/FORMETEROL FUMARATE 160/4.5 mcg INHALER IH SCH ×2 (09:08→22:38)
--- NOTE | 2017-08-25 09:27 | PN ---
Progress Note, Physician History of Present Illness: Dyspnea, cough and wheezes continues to improve with treatment. - Current Medication List Current Medications: Active Medications Acetaminophen (Tylenol -) 650 mg PO Q6H PRN PRN Reason: FEVER OR PAIN Last Admin: 08/23/17 09:12 Dose: 650 mg Albuterol Sulfate (Ventolin 0.083% Nebulizer Soln -) 1 amp NEB Q4H PRN PRN Reason: SHORT OF BREATH/WHEEZING Last Admin: 08/24/17 06:42 Dose: 1 amp Amlodipine Besylate (Norvasc -) 10 mg PO DAILY [facility] Last Admin: 08/25/17 09:07 Dose: 10 mg Atenolol (Tenormin -) 25 mg PO DAILY [facility] Last Admin: 08/25/17 09:07 Dose: 25 mg Atorvastatin Calcium (Lipitor -) 10 mg PO HS [facility] Last Admin: 08/24/17 21:46 Dose: 10 mg Azithromycin (Azithromycin) 500 mg PO DAILY [facility] Last Admin: 08/25/17 09:07 Dose: 500 mg Budesonide/Formoterol Fumarate (Symbicort 160/4.5mcg -) 2 puff IH BID [facility] Last Admin: 08/25/17 09:08 Dose: 2 puff Guaifenesin (Robitussin -) 10 ml PO TID [facility] Last Admin: 08/25/17 06:20 Dose: 10 ml Losartan Potassium (Losartan Potassium) 100 mg PO DAILY [facility] Last Admin: 08/25/17 09:07 Dose: 100 mg Methylprednisolone Sodium Succinate (Solu-Medrol -) 60 mg IVPB Q8H [facility] Last Admin: 08/25/17 03:04 Dose: 60 mg Tiotropium [place] (Spiriva -) 1 puff IH DAILY [facility] Last Admin: 08/25/17 09:08 Dose: 1 puff - Objective Vital Signs: Vital Signs Temperature 97.5 F L 08/25/17 05:42 Pulse Rate 90 08/25/17 05:42 Respiratory Rate 20 08/25/17 05:42 Blood Pressure 144/78 08/25/17 05:42 O2 Sat by Pulse Oximetry (%) 100 08/24/17 20:09 Constitutional: Yes: No Distress, Calm Neck: Yes: Supple Cardiovascular: Yes: Regular Rate and Rhythm Respiratory: Yes: Regular, Diminished, On Nasal O2 Gastrointestinal: Yes: Normal Bowel Sounds, Soft, Abdomen, Obese Edema: No Labs: CBC, BMP 08/25/17 05:10 08/23/17 06:30 - ....Imaging EKG: Report Reviewed (Tele: SR) Problem List - Problems (1) Acute exacerbation of chronic obstructive airways disease with asthma Code(s): J44.1 - CHRONIC OBSTRUCTIVE PULMONARY DISEASE W (ACUTE) EXACERBATION J45.901 - UNSPECIFIED ASTHMA WITH (ACUTE) EXACERBATION (2) Hypertensive cardiovascular disease Code(s): I11.9 - HYPERTENSIVE HEART DISEASE WITHOUT HEART FAILURE Qualifiers: Heart failure presence: without heart failure Qualified Code(s): I11.9 - Hypertensive heart disease without heart failure; I11.9 - Hypertensive heart disease without heart failure; I11.9 - Hypertensive heart disease without heart failure (3) Leukocytosis Code(s): D72.829 - ELEVATED WHITE BLOOD CELL COUNT, UNSPECIFIED Qualifiers: Leukocytosis type: unspecified Qualified Code(s): D72.829 - Elevated white blood cell count, unspecified; D72.829 - Elevated white blood cell count, unspecified (4) Tobacco abuse counseling Code(s): Z71.6 - TOBACCO ABUSE COUNSELING (5) Hyperlipidemia Code(s): E78.5 - HYPERLIPIDEMIA, UNSPECIFIED Qualifiers: Hyperlipidemia type: pure hypercholesterolemia Qualified Code(s): E78.00 - Pure hypercholesterolemia, unspecified; E78.00 - Pure hypercholesterolemia, unspecified; E78.00 - Pure hypercholesterolemia, unspecified; E78.0 - Pure hypercholesterolemia (6) Sleep apnea Code(s): G47.30 - SLEEP APNEA, UNSPECIFIED Qualifiers: Sleep apnea type: obstructive Qualified Code(s): G47.33 - Obstructive sleep apnea (adult) (pediatric); G47.33 - Obstructive sleep apnea ( adult) (pediatric) Assessment/Plan 1. Acute exacerbation of asthmatic COPD preceded by URI improving 2. Former smoker last 2 weeks ago 3. HTN/HCVD 4. OSAS AHI 24 5. Hyperlipidemia P:1. BD, O2 to maintain saO2, IV steroid taper, empiric abx 2. PFTs and cpap titration as outpatient 3. Tobacco abstinence 4. Continue Norvasc 10 qd, Atenolol 25 qd, losartan 100 qd and Lipitor 10 qd 5. May transfer off monitored floor
[2017-08-25 10:05] LABS: TOTAL CELLS COUNTED 100
[2017-08-25 10:06] LABS: PLATELET ESTIMATE ADEQUATE (NORMAL)
--- NOTE | 2017-08-25 10:11 | PN ---
Progress Note, Physician History of Present Illness: pulonary alert,feeling better,less dyspneic,+[place] - Current Medication List Current Medications: Active Medications Acetaminophen (Tylenol -) 650 mg PO Q6H PRN PRN Reason: FEVER OR PAIN Last Admin: 08/23/17 09:12 Dose: 650 mg Albuterol Sulfate (Ventolin 0.083% Nebulizer Soln -) 1 amp NEB Q4H PRN PRN Reason: SHORT OF BREATH/WHEEZING Last Admin: 08/24/17 06:42 Dose: 1 amp Amlodipine Besylate (Norvasc -) 10 mg PO DAILY [facility] Last Admin: 08/25/17 09:07 Dose: 10 mg Atenolol (Tenormin -) 25 mg PO DAILY [facility] Last Admin: 08/25/17 09:07 Dose: 25 mg Atorvastatin Calcium (Lipitor -) 10 mg PO HS [facility] Last Admin: 08/24/17 21:46 Dose: 10 mg Azithromycin (Azithromycin) 500 mg PO DAILY [facility] Last Admin: 08/25/17 09:07 Dose: 500 mg Budesonide/Formoterol Fumarate (Symbicort 160/4.5mcg -) 2 puff IH BID [facility] Last Admin: 08/25/17 09:08 Dose: 2 puff Guaifenesin (Robitussin -) 10 ml PO TID [facility] Last Admin: 08/25/17 06:20 Dose: 10 ml Losartan Potassium (Losartan Potassium) 100 mg PO DAILY [facility] Last Admin: 08/25/17 09:07 Dose: 100 mg Methylprednisolone Sodium Succinate (Solu-Medrol -) 40 mg IVPB BID [facility] Tiotropium [place] (Spiriva -) 1 puff IH DAILY [facility] Last Admin: 08/25/17 09:08 Dose: 1 puff - Objective Vital Signs: Vital Signs Temperature 97.5 F L 08/25/17 05:42 Pulse Rate 90 08/25/17 05:42 Respiratory Rate 20 08/25/17 05:42 Blood Pressure 144/78 08/25/17 05:42 O2 Sat by Pulse Oximetry (%) 100 08/24/17 20:09 Constitutional: Yes: Well Nourished, Calm Eyes: Yes: WNL HENT: Yes: WNL Neck: Yes: WNL Cardiovascular: Yes: Regular Rate and Rhythm, S1, S2 Respiratory: Yes: Diminished Gastrointestinal: Yes: Normal Bowel Sounds, Soft Extremities: Yes: WNL Edema: No Labs: CBC, BMP 08/25/17 05:10 Problem List - Problems (1) Acute exacerbation of chronic obstructive airways disease with asthma Code(s): J44.1 - CHRONIC OBSTRUCTIVE PULMONARY DISEASE W (ACUTE) EXACERBATION J45.901 - UNSPECIFIED ASTHMA WITH (ACUTE) EXACERBATION (2) Hypertensive cardiovascular disease Code(s): I11.9 - HYPERTENSIVE HEART DISEASE WITHOUT HEART FAILURE Qualifiers: Heart failure presence: without heart failure Qualified Code(s): I11.9 - Hypertensive heart disease without heart failure; I11.9 - Hypertensive heart disease without heart failure; I11.9 - Hypertensive heart disease without heart failure (3) Tobacco abuse counseling Code(s): Z71.6 - TOBACCO ABUSE COUNSELING (4) Sleep apnea Code(s): G47.30 - SLEEP APNEA, UNSPECIFIED Qualifiers: Sleep apnea type: obstructive Qualified Code(s): G47.33 - Obstructive sleep apnea (adult) (pediatric); G47.33 - Obstructive sleep apnea ( adult) (pediatric) Assessment/Plan IMP ASTHMA/COPD EXACERBATION improving URI H/O BLADDER CA S/P SURGERY HTN HLD OSAS SMOKER PULMONARY NODULES THYROID NODULES NICOLE STEROID TAPER INHALED BRONCHODILATORS O2 PFS OUTPATIENT MONITOR PEAK FLOW CHEST CT IN 6MONTHS SMOKING CESSATION COUNSELED CPAP TITRATION OUTPATIENT CONSIDER OUTPATIENT ENDOCRINE EVALUATION DR LAM
--- NOTE | 2017-08-25 11:25 | PN ---
Progress Note, Physician Chief Complaint: Pt lying in bed,feels better,wheezing still present afebrie Ct chest findings noted,PUL nodule and emphysematous changes,Thyroid nodules - Current Medication List Current Medications: Active Medications Acetaminophen (Tylenol -) 650 mg PO Q6H PRN PRN Reason: FEVER OR PAIN Last Admin: 08/23/17 09:12 Dose: 650 mg Albuterol Sulfate (Ventolin 0.083% Nebulizer Soln -) 1 amp NEB Q4H PRN PRN Reason: SHORT OF BREATH/WHEEZING Last Admin: 08/24/17 06:42 Dose: 1 amp Amlodipine Besylate (Norvasc -) 10 mg PO DAILY [facility] Last Admin: 08/25/17 09:07 Dose: 10 mg Atenolol (Tenormin -) 25 mg PO DAILY [facility] Last Admin: 08/25/17 09:07 Dose: 25 mg Atorvastatin Calcium (Lipitor -) 10 mg PO HS [facility] Last Admin: 08/24/17 21:46 Dose: 10 mg Azithromycin (Azithromycin) 500 mg PO DAILY [facility] Last Admin: 08/25/17 09:07 Dose: 500 mg Budesonide/Formoterol Fumarate (Symbicort 160/4.5mcg -) 2 puff IH BID [facility] Last Admin: 08/25/17 09:08 Dose: 2 puff Guaifenesin (Robitussin -) 10 ml PO TID [facility] Last Admin: 08/25/17 06:20 Dose: 10 ml Losartan Potassium (Losartan Potassium) 100 mg PO DAILY [facility] Last Admin: 08/25/17 09:07 Dose: 100 mg Methylprednisolone Sodium Succinate (Solu-Medrol -) 40 mg IVPB BID [facility] Last Admin: 08/25/17 10:00 Dose: 40 mg Tiotropium [place] (Spiriva -) 1 puff IH DAILY [facility] Last Admin: 08/25/17 09:08 Dose: 1 puff - Objective Vital Signs: Vital Signs Temperature 98.2 F 08/25/17 10:00 Pulse Rate 60 08/25/17 10:00 Respiratory Rate 20 08/25/17 10:00 Blood Pressure 150/89 08/25/17 10:00 O2 Sat by Pulse Oximetry (%) 95 08/25/17 10:00 Eyes: Yes: Conjunctiva Clear HENT: Yes: WNL, Atraumatic Neck: Yes: WNL, Supple Cardiovascular: Yes: WNL, Regular Rate and Rhythm Respiratory: Yes: On Nasal O2, Rhonchi, Wheezes Gastrointestinal: Yes: Normal Bowel Sounds, Soft Musculoskeletal: Yes: WNL Extremities: Yes: WNL Edema: No Peripheral Pulses WNL: Yes ...Motor Strength: WNL Psychiatric: Yes: WNL, Alert Labs: CBC, BMP 08/25/17 05:10 08/23/17 06:30 - ....Imaging Cat Scan: Report Reviewed Assessment/Plan SOB,?COPD excacerbation/asthma Leukocytosis ?steroid induced PULMONARY nodules,THYROID NODULES HTN Hypercholestrolemis S/p bladder CA PLAN lsmoking cessation COntinue Bronchodialators Continue IV steroids,antibiotics and Oxygen Endocrine F?U for thyroid nodule as OP
[2017-08-25] MEDS: ATORVASTATIN CA 10 MG TABLET (FP) PO SCH (22:38)
[2017-08-26] MEDS: guaiFENesin 200 MG/10 ML 10 ML UNIT-DOSE CUPS PO SCH (05:45)
[2017-08-26 06:44] LABS: MCH 29.9 pg (25.7-33.7); MCHC 32.7 g/dl (32.0-36.0); MEAN CELL VOLUME 91.4 fl (80-96); MEAN PLT VOLUME 6.8 fl (7.5-11.1); PLATELET COUNT 493 K/MM3 (134-434); RDW 13.9 % (11.6-15.6); WHITE BLOOD COUNT 16.6 K/mm3 (4.0-10.0)
[2017-08-26 07:39] LABS: ALBUMIN 3.5 g/dl (3.4-5.0); ALK PHOS 103 U/L (45-117); ANION GAP 10 (8-16); BILIRUBIN,TOTAL 0.5 mg/dL (0.2-1.0); CALCIUM 9.5 mg/dL (8.5-10.1); CO2 25 mmol/L (21-32); GLUCOSE,RANDOM 133 mg/dL (74-106); SGOT/AST 12 U/L (15-37); SGPT/ALT 27 U/L (12-78); TOT PROT 7.2 g/dl (6.4-8.2)
[2017-08-26 08:46] LABS: METAMYELOCYTE 1 % (0-2); NUCLEATED RED BLOOD CELL 1 % (0-0); TOTAL CELLS COUNTED 100
[2017-08-26 08:47] LABS: PLATELET ESTIMATE INCREASED (NORMAL)
[2017-08-26] MEDS: ATENOLOL 25 MG TABLET (FP) PO SCH (09:38)
[2017-08-26] MEDS: TIOTROPIUM BROMIDE 18 MCG/INH (DEVICE W/ 5 CAPSULES) IH SCH (09:39)
[2017-08-26] MEDS: LOSARTAN POTASSIUM 100 MG TABLET PO SCH (09:39)
[2017-08-26] MEDS: methylPREDNISolone NA SUCC 40 MG/1 ML VIAL IVPB SCH (09:39)
[2017-08-26] MEDS: AZITHROMYCIN 500 MG TABLET PO SCH (09:39)
[2017-08-26] MEDS: BUDESONIDE/FORMETEROL FUMARATE 160/4.5 mcg INHALER IH SCH (09:39)
[2017-08-26] MEDS: amLODIPine BESYLATE 10 MG TABLET (FP) PO SCH (09:39)
--- NOTE | 2017-08-26 09:55 | PN ---
Progress Note, Physician Chief Complaint: Pt lying in bed,feels better,wheezing still present afebrie Ct chest findings noted,PUL nodule and emphysematous changes,Thyroid nodules - Current Medication List Current Medications: Active Medications Acetaminophen (Tylenol -) 650 mg PO Q6H PRN PRN Reason: FEVER OR PAIN Last Admin: 08/23/17 09:12 Dose: 650 mg Albuterol Sulfate (Ventolin 0.083% Nebulizer Soln -) 1 amp NEB Q4H PRN PRN Reason: SHORT OF BREATH/WHEEZING Last Admin: 08/24/17 06:42 Dose: 1 amp Amlodipine Besylate (Norvasc -) 10 mg PO DAILY [facility] Last Admin: 08/26/17 09:39 Dose: 10 mg Atenolol (Tenormin -) 25 mg PO DAILY [facility] Last Admin: 08/26/17 09:38 Dose: 25 mg Atorvastatin Calcium (Lipitor -) 10 mg PO HS [facility] Last Admin: 08/25/17 22:38 Dose: 10 mg Azithromycin (Azithromycin) 500 mg PO DAILY [facility] Last Admin: 08/26/17 09:39 Dose: 500 mg Budesonide/Formoterol Fumarate (Symbicort 160/4.5mcg -) 2 puff IH BID [facility] Last Admin: 08/26/17 09:39 Dose: 2 puff Guaifenesin (Robitussin -) 10 ml PO TID [facility] Last Admin: 08/26/17 05:45 Dose: 10 ml Losartan Potassium (Losartan Potassium) 100 mg PO DAILY [facility] Last Admin: 08/26/17 09:39 Dose: 100 mg Methylprednisolone Sodium Succinate (Solu-Medrol -) 40 mg IVPB BID [facility] Last Admin: 08/26/17 09:39 Dose: 40 mg Tiotropium [place] (Spiriva -) 1 puff IH DAILY [facility] Last Admin: 08/26/17 09:39 Dose: 1 puff - Objective Vital Signs: Vital Signs Temperature 97.8 F 08/26/17 05:43 Pulse Rate 70 08/26/17 05:43 Respiratory Rate 20 08/26/17 05:43 Blood Pressure 142/98 08/26/17 05:43 O2 Sat by Pulse Oximetry (%) 95 08/25/17 21:00 Constitutional: Yes: No Distress Eyes: Yes: Conjunctiva Clear HENT: Yes: Atraumatic Neck: Yes: Supple, Trachea Midline Cardiovascular: Yes: Regular Rate and Rhythm Respiratory: Yes: Regular, On Nasal O2, Wheezes Gastrointestinal: Yes: Normal Bowel Sounds, Soft Musculoskeletal: Yes: WNL, Back Pain Extremities: Yes: WNL Edema: No Peripheral Pulses WNL: Yes Neurological: Yes: WNL, Alert ...Motor Strength: WNL Psychiatric: Yes: WNL, Alert Labs: CBC, BMP 08/26/17 06:20 08/26/17 06:20 Assessment/Plan SOB,?COPD excacerbation/asthma Leukocytosis ?steroid induced improving PULMONARY nodules,THYROID NODULES HTN Hypercholestrolemis S/p bladder CA PLAN lsmoking cessation COntinue Bronchodialators Continue IV steroids,antibiotics and Oxygen Endocrine F/U for thyroid nodule as OP
--- NOTE | 2017-08-26 10:07 | PN ---
Progress Note, Physician Chief Complaint: Events noted Feels better this am History of Present Illness: Patient was seen and examined. Awake and alert. Chart was reviewed Denies chest pain or palpitations. Less SOB - Current Medication List Current Medications: Active Medications Acetaminophen (Tylenol -) 650 mg PO Q6H PRN PRN Reason: FEVER OR PAIN Last Admin: 08/23/17 09:12 Dose: 650 mg Albuterol Sulfate (Ventolin 0.083% Nebulizer Soln -) 1 amp NEB Q4H PRN PRN Reason: SHORT OF BREATH/WHEEZING Last Admin: 08/24/17 06:42 Dose: 1 amp Amlodipine Besylate (Norvasc -) 10 mg PO DAILY [facility] Last Admin: 08/26/17 09:39 Dose: 10 mg Atenolol (Tenormin -) 25 mg PO DAILY [facility] Last Admin: 08/26/17 09:38 Dose: 25 mg Atorvastatin Calcium (Lipitor -) 10 mg PO HS [facility] Last Admin: 08/25/17 22:38 Dose: 10 mg Azithromycin (Azithromycin) 500 mg PO DAILY [facility] Last Admin: 08/26/17 09:39 Dose: 500 mg Budesonide/Formoterol Fumarate (Symbicort 160/4.5mcg -) 2 puff IH BID [facility] Last Admin: 08/26/17 09:39 Dose: 2 puff Guaifenesin (Robitussin -) 10 ml PO TID [facility] Last Admin: 08/26/17 05:45 Dose: 10 ml Losartan Potassium (Losartan Potassium) 100 mg PO DAILY [facility] Last Admin: 08/26/17 09:39 Dose: 100 mg Methylprednisolone Sodium Succinate (Solu-Medrol -) 40 mg IVPB BID [facility] Last Admin: 08/26/17 09:39 Dose: 40 mg Tiotropium [place] (Spiriva -) 1 puff IH DAILY [facility] Last Admin: 08/26/17 09:39 Dose: 1 puff - Objective Vital Signs: Vital Signs Temperature 97.8 F 08/26/17 05:43 Pulse Rate 70 08/26/17 05:43 Respiratory Rate 20 08/26/17 05:43 Blood Pressure 142/98 08/26/17 05:43 O2 Sat by Pulse Oximetry (%) 95 08/25/17 21:00 Neck: Yes: Supple Cardiovascular: Yes: Regular Rate and Rhythm, S1, S2 Respiratory: Yes: Diminished Gastrointestinal: Yes: Normal Bowel Sounds, Soft. No: Tenderness Edema: No Additional Findings/Remarks: - Review of Systems Constitutional: denies: Chills, Fever Cardiovascular: denies: Palpitations, (+) Shortness of Breath. denies: Chest Pain Respiratory: reports: Cough, SOB. denies: Hemoptysis, Orthopnea, PND Gastrointestinal: denies: Abdominal Pain. denies: Constipation, Diarrhea, Melena, Nausea, Rectal Bleeding, Vomiting Neurological: denies: Confusion, Dizziness, Headache, Seizure, Syncope Labs: CBC, BMP 08/26/17 06:20 08/26/17 06:20 Problem List - Problems (1) Acute exacerbation of chronic obstructive airways disease with asthma Code(s): J44.1 - CHRONIC OBSTRUCTIVE PULMONARY DISEASE W (ACUTE) EXACERBATION J45.901 - UNSPECIFIED ASTHMA WITH (ACUTE) EXACERBATION (2) Hyperlipidemia Code(s): E78.5 - HYPERLIPIDEMIA, UNSPECIFIED Qualifiers: Hyperlipidemia type: pure hypercholesterolemia Qualified Code(s): E78.00 - Pure hypercholesterolemia, unspecified; E78.00 - Pure hypercholesterolemia, unspecified; E78.00 - Pure hypercholesterolemia, unspecified; E78.0 - Pure hypercholesterolemia (3) Hypertensive cardiovascular disease Code(s): I11.9 - HYPERTENSIVE HEART DISEASE WITHOUT HEART FAILURE Qualifiers: Heart failure presence: without heart failure Qualified Code(s): I11.9 - Hypertensive heart disease without heart failure; I11.9 - Hypertensive heart disease without heart failure; I11.9 - Hypertensive heart disease without heart failure (4) Leukocytosis Code(s): D72.829 - ELEVATED WHITE BLOOD CELL COUNT, UNSPECIFIED Qualifiers: Leukocytosis type: unspecified Qualified Code(s): D72.829 - Elevated white blood cell count, unspecified; D72.829 - Elevated white blood cell count, unspecified (5) Sleep apnea Code(s): G47.30 - SLEEP APNEA, UNSPECIFIED Qualifiers: Sleep apnea type: obstructive Qualified Code(s): G47.33 - Obstructive sleep apnea (adult) (pediatric); G47.33 - Obstructive sleep apnea ( adult) (pediatric) Assessment/Plan 1. Acute exacerbation of asthmatic COPD and URI 2. HTN/HCVD 3. OSAS 4. Hyperlipidemia PLAN: 1. Bronchodilator, O2, IV steroid taper and empiric antibiotic coverage 2. Consider PFTs and CPAP as outpatient 3. Tobacco abstinence 4. Continue Norvasc, Atenolol and Losartan 5. Continue Lipitor Further plans are to follow Chad Draper MD
--- NOTE | 2017-08-26 10:33 | PN ---
Progress Note, Physician History of Present Illness: pulmonary alert,feeling better,dyspnea improved,-cough,-cp - Current Medication List Current Medications: Active Medications Acetaminophen (Tylenol -) 650 mg PO Q6H PRN PRN Reason: FEVER OR PAIN Last Admin: 08/23/17 09:12 Dose: 650 mg Albuterol Sulfate (Ventolin 0.083% Nebulizer Soln -) 1 amp NEB Q4H PRN PRN Reason: SHORT OF BREATH/WHEEZING Last Admin: 08/24/17 06:42 Dose: 1 amp Amlodipine Besylate (Norvasc -) 10 mg PO DAILY [facility] Last Admin: 08/26/17 09:39 Dose: 10 mg Atenolol (Tenormin -) 25 mg PO DAILY [facility] Last Admin: 08/26/17 09:38 Dose: 25 mg Atorvastatin Calcium (Lipitor -) 10 mg PO HS [facility] Last Admin: 08/25/17 22:38 Dose: 10 mg Azithromycin (Azithromycin) 500 mg PO DAILY [facility] Last Admin: 08/26/17 09:39 Dose: 500 mg Budesonide/Formoterol Fumarate (Symbicort 160/4.5mcg -) 2 puff IH BID [facility] Last Admin: 08/26/17 09:39 Dose: 2 puff Guaifenesin (Robitussin -) 10 ml PO TID [facility] Last Admin: 08/26/17 05:45 Dose: 10 ml Losartan Potassium (Losartan Potassium) 100 mg PO DAILY [facility] Last Admin: 08/26/17 09:39 Dose: 100 mg Methylprednisolone Sodium Succinate (Solu-Medrol -) 40 mg IVPB BID [facility] Last Admin: 08/26/17 09:39 Dose: 40 mg Tiotropium [place] (Spiriva -) 1 puff IH DAILY [facility] Last Admin: 08/26/17 09:39 Dose: 1 puff - Objective Vital Signs: Vital Signs Temperature 97.8 F 08/26/17 05:43 Pulse Rate 70 08/26/17 05:43 Respiratory Rate 20 08/26/17 05:43 Blood Pressure 142/98 08/26/17 05:43 O2 Sat by Pulse Oximetry (%) 95 08/25/17 21:00 Constitutional: Yes: Well Nourished, Calm Eyes: Yes: WNL HENT: Yes: WNL Neck: Yes: WNL Cardiovascular: Yes: Regular Rate and Rhythm, S1, S2 Respiratory: Yes: CTA Bilaterally Gastrointestinal: Yes: Normal Bowel Sounds, Soft Extremities: Yes: WNL Edema: No Labs: CBC, BMP 08/26/17 06:20 08/26/17 06:20 Problem List - Problems (1) Acute exacerbation of chronic obstructive airways disease with asthma Code(s): J44.1 - CHRONIC OBSTRUCTIVE PULMONARY DISEASE W (ACUTE) EXACERBATION J45.901 - UNSPECIFIED ASTHMA WITH (ACUTE) EXACERBATION (2) Hypertensive cardiovascular disease Code(s): I11.9 - HYPERTENSIVE HEART DISEASE WITHOUT HEART FAILURE Qualifiers: Heart failure presence: without heart failure Qualified Code(s): I11.9 - Hypertensive heart disease without heart failure; I11.9 - Hypertensive heart disease without heart failure; I11.9 - Hypertensive heart disease without heart failure (3) Tobacco abuse counseling Code(s): Z71.6 - TOBACCO ABUSE COUNSELING (4) Sleep apnea Code(s): G47.30 - SLEEP APNEA, UNSPECIFIED Qualifiers: Sleep apnea type: obstructive Qualified Code(s): G47.33 - Obstructive sleep apnea (adult) (pediatric); G47.33 - Obstructive sleep apnea ( adult) (pediatric) Assessment/Plan IMP ASTHMA/COPD EXACERBATION improving URI H/O BLADDER CA S/P SURGERY HTN HLD OSAS SMOKER PULMONARY NODULES THYROID NODULES PLAN PREDNISONE 50mg daily with taper 5mg every 2 days INHALED BRONCHODILATORS SYM BICORT 160/4.5 2 PUFFS BID O2 PFTS OUTPATIENT CHEST CT IN 6MONTHS SMOKING CESSATION COUNSELED CPAP TITRATION OUTPATIENT CONSIDER OUTPATIENT ENDOCRINE EVALUATION OK TO DISCHARGE HOME DR LAM
[2017-08-26 12:47] VITALS: BP 148/85; PULSE 68; TEMP 98.5
--- NOTE | 2017-08-27 18:19 | DS ---
Physical Examination Vital Signs: Vital Signs Temperature 98.5 F 08/26/17 10:00 Pulse Rate 68 08/26/17 10:00 Respiratory Rate 20 08/26/17 10:00 Blood Pressure 148/85 08/26/17 10:00 O2 Sat by Pulse Oximetry (%) 97 08/26/17 10:00 Labs: CBC, BMP 08/26/17 06:20 08/26/17 06:20 Discharge Summary Reason For Visit: MUCOPURULENT CHRONIC BRONCHITIS Copd excacerbation HTN SOB Leucocytosis TOBAcco abuse Hyperlipidemia Bladder ca Hospital Course: Pt admitted with acute excacerbation of copd Cbc shows wbc 17,and cmp nl,blood cul negative,EKG Sinus tachycardia Vitals shows saturation low 90% Xray chest no a/c pathology CT chest shows bilateral pul nodule and emphysematous change Pt was treated with O2,IV prednisone,bronchodilators and antibiotics Pt was followed by pulmonary Pt was stable on the floor D/c home on Bronchodialators,Prednisone tapering dose and home meds in a stable condition and rec to f/u with pulmonary for Outpatient PFT Condition: Fair - Instructions Referrals: Davin Matamoros MD [Staff Physician] - Chad Draper MD [Staff Physician] - Bryan Odonnell MD [Primary Care Provider] - Disposition: HOME - Home Medications Comprehensive Discharge Medication List: Ambulatory Orders Albuterol Sulfate Inhaler - [Ventolin Hfa Inhaler -] 1 - 2 inh PO PRN PRN Amlodipine Besylate 10 mg PO DAILY 09/12/15 Atenolol [Tenormin -] 25 mg PO DAILY 09/12/15 Losartan Potassium 100 mg PO DAILY 09/12/15 Multivitamins [Tab-A-Vit -] 1 tab PO DAILY 09/12/15 Budesonide/Formeterol Fumarate [SYMBICORT 160/4.5mcg -] 1 inh IH BID #3 inhaler 08/26/17 Prednisone [Deltasone -] 50 mg PO DAILY #2 tablet 08/26/17 Tiotropium [place] [Spiriva Respimat] 4 gm IH DAILY #1 mist.inhal 08/26/17
--- NOTE | 2017-08-27 18:21 | DS ---
Physical Examination Vital Signs: Vital Signs Temperature 98.5 F 08/26/17 10:00 Pulse Rate 68 08/26/17 10:00 Respiratory Rate 20 08/26/17 10:00 Blood Pressure 148/85 08/26/17 10:00 O2 Sat by Pulse Oximetry (%) 97 08/26/17 10:00 Labs: CBC, BMP 08/26/17 06:20 08/26/17 06:20 Discharge Summary Reason For Visit: MUCOPURULENT CHRONIC BRONCHITIS Acute excacerbation of copd SOB Leukocytosis Tobacco abuse Hyperlipidemia Condition: Fair - Instructions Referrals: Davin Matamoros MD [Staff Physician] - Chad Draper MD [Staff Physician] - Bryan Odonnell MD [Primary Care Provider] - Disposition: HOME - Home Medications Comprehensive Discharge Medication List: Ambulatory Orders Albuterol Sulfate Inhaler - [Ventolin Hfa Inhaler -] 1 - 2 inh PO PRN PRN Amlodipine Besylate 10 mg PO DAILY 09/12/15 Atenolol [Tenormin -] 25 mg PO DAILY 09/12/15 Losartan Potassium 100 mg PO DAILY 09/12/15 Multivitamins [Tab-A-Vit -] 1 tab PO DAILY 09/12/15 Budesonide/Formeterol Fumarate [SYMBICORT 160/4.5mcg -] 1 inh IH BID #3 inhaler 08/26/17 Prednisone [Deltasone -] 50 mg PO DAILY #2 tablet 08/26/17 Tiotropium [place] [Spiriva Respimat] 4 gm IH DAILY #1 mist.inhal 08/26/17
--- NOTE | 2017-08-29 12:01 | EKG ---
Test Reason : Blood Pressure : / mmHG Vent. Rate : 077 BPM Atrial Rate : 077 BPM P-R Int : 142 ms QRS Dur : 086 ms QT Int : 394 ms P-R-T Axes : -15 -21 -15 degrees QTc Int : 445 ms POOR DATA QUALITY, INTERPRETATION MAY BE ADVERSELY AFFECTED NORMAL SINUS RHYTHM ABNORMAL ECG WHEN COMPARED WITH ECG OF 05-OCT-2015 12:18, QUESTIONABLE CHANGE IN QRS AXIS ST NOW DEPRESSED IN INFERIOR LEADS T WAVE INVERSION NOW EVIDENT IN INFERIOR LEADS Confirmed by J LUIS KAT MD ([id number]) on 08/29/2017 12:01:27 PM Referred By: Confirmed By:J LUIS KAT MD
== END 2017-08-26 12:01 | disposition home or self-care (01) | DRG 192 ==
LOC: JER 10:26 → JERBED 12:57 → J4W 17:11
PROVIDERS: ADMIT Family Medicine; ATTEND Family Medicine
DX: J44.1 Chronic obstructive pulmonary disease with (acute) exacerbation (principal); E78.5 Hyperlipidemia, unspecified; Z85.51 Personal history of malignant neoplasm of bladder; F17.210 Nicotine dependence, cigarettes, uncomplicated; D72.829 Elevated white blood cell count, unspecified; J06.9 Acute upper respiratory infection, unspecified; I11.9 Hypertensive heart disease without heart failure; G47.33 Obstructive sleep apnea (adult) (pediatric); R91.1 Solitary pulmonary nodule; E04.1 Nontoxic single thyroid nodule
CPT/HCPCS: 36415; 71010-TC; 71250-TC; 80053; 83735; 83880; 84484; 85025; 87040; 93005; 93010; 94640; 99284-25

== ENCOUNTER 2018-04-07 11:14 | Inpatient (IN) | payer OTHER ==
[2018-04-07 11:22] VITALS: BMI 35.5
--- NOTE | 2018-04-07 11:49 | PDOC ---
Attending Attestation - Resident Resident Name: Fausto Mota - HPI HPI: 04/11/18 01:11 Pt presents to the ED complaining of shortness of breath that is similar to, but worse than, her chronic COPD. Has used her inhalers at home without relief. - Physicial Exam PE: 04/11/18 01:19 Agree with resident exam. PAtient has conversational dyspnea and is speaking in 3-4 word sentences. + diffuse wheezing on exam. - Medical Decision Making 04/11/18 01:20 Pt presents to the ED complaining of wheezing and shortness of breath. Remains tachypneic and short of breath after nebs in the ED. Will treat with solumedrol and admit to medicine for COPD exacerbation.
--- NOTE | 2018-04-07 12:09 | PDOC ---
History of Present Illness - General Chief Complaint: Shortness of Breath Stated Complaint: SOB Time Seen by Provider: 04/07/18 11:49 - History of Present Illness Initial Comments: Patient is a 63 year old female, with a significant past medical history of COPD , HTN, tobacco use, bladder CA (s/p resection in 2014) who presents to the emergency department complaining of 3 days of worsening SOB and cough. 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 Pt states the air humidity was the culprit. Since then , pt endorse worsening dyspnea, SOB and cough productive of clear sputum. Pt was seen by her PCP this AM and immediately sent to ED for suspected COPD exacerbation. Pt not on home o2, takes albuterol, symbicort at home. 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 No sick contact, recent travel, diet changes, exposure to allergens. Patient endorses anterior chest wall pain from coughing, states she has been intermittently with F/C. patient denies headache or dizziness. Denies vision changes, chest pain, ALCAZAR, nausea, vomiting, diarrhea and constipation. Denies dysuria, frequency, urgency and hematuria. Allergies: None Past surgical history: Emergent C-sections x2, bladder CA resection Social History: Denies alcohol, smoking, drug use PMD: Dr. Lewis 04/07/18 11:50 Past History - Past Medical History Allergies/Adverse Reactions: Allergies Allergy/AdvReac Type Severity Reaction Status Date / Time ciprofloxacin [From Cipro] Allergy Severe Itching Verified 04/07/18 11:17 ciprofloxacin HCl Allergy Severe Itching Verified 04/07/18 11:17 [From Cipro] hydrochlorothiazide Allergy Severe Itching Verified 04/07/18 11:17 Home Medications: Ambulatory Orders Albuterol Sulfate Inhaler - [Ventolin Hfa Inhaler -] 1 - 2 inh PO PRN PRN Amlodipine Besylate 10 mg PO DAILY 09/12/15 Atenolol [Tenormin -] 25 mg PO DAILY 09/12/15 Losartan Potassium 100 mg PO DAILY 09/12/15 Multivitamins [Tab-A-Vit -] 1 tab PO DAILY 09/12/15 Budesonide/Formeterol Fumarate [SYMBICORT 160/4.5mcg -] 1 inh IH BID #3 inhaler 08/26/17 Tiotropium [place] [Spiriva Respimat] 4 gm IH DAILY #1 mist.inhal 08/26/17 Anemia: No Asthma: Yes (SECONDARY TO BRONCHITIS) Cancer: Yes (BLADDER) Cardiac Disorders: No CVA: No COPD: Yes CHF: No Dementia: No Diabetes: No GI Disorders: No Disorders: No HTN: Yes Hypercholesterolemia: Yes Liver Disease: No Seizures: No Thyroid Disease: No - Surgical History Abdominal Surgery: Yes (BLADDER) Appendectomy: No Cardiac Surgery: No Cholecystectomy: No Lung Surgery: No Neurologic Surgery: No Orthopedic Surgery: No - Suicide/Smoking/Psychosocial Hx Smoking History: Current every day smoker Have you smoked in the past 12 months: Yes Number of Cigarettes Smoked Daily: 6 Information on smoking cessation initiated: No 'Breaking Loose' booklet given: 08/22/17 Hx Alcohol Use: No Drug/Substance Use Hx: No Substance Use Type: None Hx Substance Use Treatment: No Review of Systems - Review of Systems Comments:: GENERAL/CONSTITUTIONAL: +fever/chills. No weakness. HEAD, EYES, EARS, NOSE AND THROAT: No change in vision. No ear pain or discharge. No sore throat. CARDIOVASCULAR: Mild anterior chest pain, with worsening shortness of breath RESPIRATORY: +cough,wheezing. No hemoptysis. GASTROINTESTINAL: No nausea, vomiting, diarrhea or constipation. GENITOURINARY: No dysuria, frequency, or change in urination. MUSCULOSKELETAL: No joint or muscle swelling or pain. No neck or back pain. SKIN: No rash NEUROLOGIC: No headache, vertigo, loss of consciousness, or change in strength/ sensation. ENDOCRINE: No increased thirst. No abnormal weight change HEMATOLOGIC/LYMPHATIC: No anemia, easy bleeding, or history of blood clots. ALLERGIC/IMMUNOLOGIC: No hives or skin allergy. 04/07/18 11:51 *Physical Exam - Vital Signs Last Vital Signs Temp Pulse Resp BP Pulse Ox 97.6 F 77 26 H 135/80 100 04/07/18 11:17 04/07/18 11:17 04/07/18 11:17 04/07/18 11:04/07/18 11:17 - Physical Exam Comments: GENERAL: Middle aged woman, Awake, alert, and fully oriented, in mild distress with labored breathing HEAD: No signs of trauma, normocephalic, atraumatic EYES: PERRLA, EOMI, sclera anicteric, conjunctiva clear ENT: Auricles normal inspection, hearing grossly normal, nares patent, oropharynx clear without exudates. Moist mucosa NECK: Normal ROM, supple, no lymphadenopathy, JVD, or masses LUNGS: Diffuse coarse rhonchi BL, upper airway expiratory wheezing. Mild distress, speaks full sentences, HEART: Regular rate and rhythm, normal S1 and S2, no murmurs, rubs or gallops, peripheral pulses normal and equal bilaterally. ABDOMEN: Soft, nontender, normoactive bowel sounds. No guarding, no rebound. No masses EXTREMITIES : Trace pedal edema BL, otherwise Normal inspection, Normal range of motion. No clubbing or cyanosis. NEUROLOGICAL: Cranial nerves II through XII grossly intact. Normal speech, normal gait, no focal sensorimotor deficits SKIN: Warm, Dry, normal turgor, no rashes or lesions noted 04/07/18 11:51 Moderate Sedation - Procedure Monitoring Vital Signs: Vital Signs Temp Pulse Resp BP Pulse Ox 97.6 F 77 26 H 135/80 100 04/07/18 11:17 04/07/18 11:17 04/07/18 11:17 04/07/18 11:17 04/07/18 11:17 ED Treatment Course - LABORATORY CBC & Chemistry Diagram: 04/07/18 12:19 04/07/18 12:19 Medical Decision Making - Medical Decision Making Patient is a 63 year old female, with a significant past medical history of COPD , HTN, tobacco use, bladder CA (s/p resection in 2014) who presents to the emergency department complaining of 3 days of worsening SOB and cough. DDx include COPD exacerbation, PNA, PE, URI, ACS. Plan: - CBC, CMP, LA, trops - CXR, EKG, ABG - Duonebx1, solumedrol 60mg x1 - blood cultures - UA - Peak flows - O2 - Pulse, cardiac monitoring 04/07/18 12:28 *DC/Admit/Observation/Transfer Diagnosis at time of Disposition: Acute exacerbation of chronic obstructive airways disease with asthma, Acute respiratory failure with hypoxia - Discharge Dispostion Condition at time of disposition: Guarded Decision to Admit order: Yes Decision to Admit order Date/Time: ABG with respiratory alkalosis, PaO2 ~70. Pt with conversationally dyspnea. Discussed case with Dr. Zacarias, will admit to non-cardiac telemetry. 04/07/18 13:49 - Referrals - Patient Instructions - Post Discharge Activity
[2018-04-07] MEDS ORDERED: ALBUTEROL SO4 2.5/IPRATROPIUM 0.5 INH SOL 3 ML VIAL.NEB. NEB ONE ×2 (12:16→13:05)
[2018-04-07] MEDS ORDERED: methylPREDNISolone NA SUCC 125 MG/2 ML VIAL IVPB ONE ×2 (12:17→13:05)
[2018-04-07] MEDS ORDERED: methylPREDNISolone NA SUCC 40 MG/1 ML VIAL ONE ×4 (12:23→22:28)
[2018-04-07 12:43] LABS: BASO % 0.8 % (0-2.0); EOS % 2.7 % (0-4.5); HEMOGLOBIN 14.5 GM/dL (10.7-15.3); MCH 30.9 pg (25.7-33.7); MCHC 33.8 g/dl (32.0-36.0); MEAN CELL VOLUME 91.4 fl (80-96); MEAN PLT VOLUME 7.2 fl (7.5-11.1); MONO % 13.1 % (3.8-10.2); NEUT % 48.4 % (42.8-82.8); PLATELET COUNT 382 K/MM3 (134-434); RDW 14.3 % (11.6-15.6); WHITE BLOOD COUNT 5.3 K/mm3 (4.0-10.0)
[2018-04-07 12:48] LABS: ARTERIAL BLD GAS O2 SATURATION 96.5 % (90-98.9); ARTERIAL BLOOD GAS BASE EXCESS 4.8 meq/l (-2-2); ARTERIAL BLOOD GAS PCO2 27.6 mmHg (35-45); ARTERIAL BLOOD GAS PO2 71.9 mmHg (80-100); ARTERIAL BLOOD GAS pH 7.58 (7.35-7.45)
[2018-04-07 12:50] LABS: ALLENS TEST POSITIVE
[2018-04-07 13:15] LABS: ALBUMIN 4.2 g/dl (3.4-5.0); ANION GAP 5 (8-16); BILIRUBIN,TOTAL 0.8 mg/dL (0.2-1.0); BLOOD UREA NITROGEN 12 mg/dL (7-18); CALCIUM 9.1 mg/dL (8.5-10.1); CHLORIDE 106 mmol/L (98-107); CO2 29 mmol/L (21-32); CREATININE 1.2 mg/dL (0.55-1.02); GLUCOSE,RANDOM 100 mg/dL (74-106); POTASSIUM 3.8 mmol/L (3.5-5.1); SGOT/AST 16 U/L (15-37); SGPT/ALT 18 U/L (12-78); SODIUM 140 mmol/L (136-145); TOT PROT 7.6 g/dl (6.4-8.2)
[2018-04-07 13:18] LABS: ALK PHOS 104 U/L (45-117)
--- NOTE | 2018-04-07 14:22 | PN ---
Progress Note (short form) - Note Progress Note: PULMONARY CONSULTATION DICTATED 04/07/18 IMP DYSPNEA COPD EXACERBATION HTN SMOKER H/O BLADDER CA S/P RESECTION H/O PULMONARY NODULES MANUEL PLAN IV STEROIDS INHALED BRONCHODILATORS O2 D-DIMER IF ELEVATED GET CHEST CTA SMOKING CESSATION COUNSELED NICODERM PATCH FORMAL SLEEP STUDIES OUTPATIENT DR LAM Problem List - Problems (1) Acute exacerbation of chronic obstructive airways disease with asthma Code(s): J44.1 - CHRONIC OBSTRUCTIVE PULMONARY DISEASE W (ACUTE) EXACERBATION; J45.901 - UNSPECIFIED ASTHMA WITH (ACUTE) EXACERBATION (2) Hypertensive cardiovascular disease Code(s): I11.9 - HYPERTENSIVE HEART DISEASE WITHOUT HEART FAILURE Qualifiers: Heart failure presence: without heart failure Qualified Code(s): I11.9 - Hypertensive heart disease without heart failure (3) Sleep apnea Code(s): G47.30 - SLEEP APNEA, UNSPECIFIED Qualifiers: Sleep apnea type: obstructive Qualified Code(s): G47.33 - Obstructive sleep apnea (adult) (pediatric) (4) Tobacco abuse counseling Code(s): Z71.6 - TOBACCO ABUSE COUNSELING
[2018-04-07] MEDS ORDERED: methylPREDNISolone NA SUCC 125 MG/2 ML VIAL IVPB STA (14:25)
[2018-04-07] MEDS ORDERED: ALBUTEROL SO4 0.083% IH SOL 2.5 MG/3 ML VIAL.NEB. NEB PRN (14:26)
--- NOTE | 2018-04-07 16:05 | CONS ---
DATE OF CONSULTATION: 04/07/2018 REFERRING PHYSICIAN: Bryan Odonnell MD HISTORY OF PRESENT ILLNESS: The patient is a 63-year-old Black female known to me from previous hospitalizations as well as a past medical history of advanced COPD on inhaled bronchodilators, hypertension, and a longstanding history of tobacco use currently still smoking, history of bladder cancer, and status post infection 2014 who was admitted to [facility]. She complains of a 3-day history of increasing shortness of breath, cough, and bronchospasm. She states today that she was doing well until 3 days prior to admission when she started developing increasing shortness of breath and wheezing. She states that this was secondary to a change in the weather and an increase in humidity. She was using inhaled bronchodilators and despite this she had an increase in symptoms at which time she presented to the emergency room. In the emergency room she was noted to be in moderate respiratory distress. She was started on inhaled bronchodilators and steroids with good clinical response. The patient has complained of a cough productive of clear sputum. She denies any hemoptysis. She denies any chest pains or palpitations. PAST MEDICAL HISTORY: Again includes advanced COPD, hypertension, history of tobacco currently still smoking, bladder CA, status post resection, and hypercholesterolemia. REVIEW OF SYSTEMS: Positive orthopnea. Positive dyspnea. Positive cough. Positive bronchospasm. No chest pain. No palpitations. Free of sputum. No hemoptysis. No abdominal pain. MEDICATIONS: Prior to admission include albuterol, amlodipine, Tenormin, Symbicort 160/4.5, and Spiriva Respimat. PHYSICAL EXAMINATION: General: The patient is a well-developed, well-nourished female who is awake, alert and mildly dyspneic but in no acute distress. She is currently afebrile. Vital Signs: Blood pressure is 135/80 and respiratory rate is 20. HEENT: Normocephalic, atraumatic. Neck: Supple. Heart: Regular S1, S2. Chest: Scattered bilateral wheezes. Abdomen: Soft. Bowel sounds are positive. Extremities: No cyanosis, clubbing, or edema. LABORATORY DATA: WBC is 5.3, hemoglobin 14.5, hematocrit 43.2, and platelet count of 382,000. Blood gas pH of 7.58, PCO2 of 27, PO2 71, a bicarbonate of 21, and a saturation of 96.5%. Chemistries: BUN 12, creatinine 1.2. Chest x-ray reveals no infiltrates and no effusions. IMPRESSION: 1. Acute respiratory distress secondary to exacerbation of chronic obstructive pulmonary disease. 2. History of hypertension. 3. Tobacco abuse. 4. History of pulmonary nodules. PLAN: IV steroids. Inhaled bronchodilators. Supplemental oxygen. Obtain a follow-up chest CT. IV fluids. Smoking cessation counseled, sought NicoDerm patch. SHER LAM M.D. [id number]
--- NOTE | 2018-04-07 18:02 | EKG ---
Test Reason : Blood Pressure : / mmHG Vent. Rate : 085 BPM Atrial Rate : 085 BPM P-R Int : 154 ms QRS Dur : 098 ms QT Int : 388 ms P-R-T Axes : 069 067 074 degrees QTc Int : 461 ms NORMAL SINUS RHYTHM ABNORMAL ECG WHEN COMPARED WITH ECG OF 07-APR-2018 11:51, T WAVE VARIATION Confirmed by YOUNG STEINBERG MD ([id number]) on 04/07/2018 6:02:27 PM Referred By: Confirmed By:YOUNG STEINBERG MD
[2018-04-07] MEDS: NICOTINE 14 MG/24 HOURS TOPICAL PATCH TD SCH (18:04)
[2018-04-07] MEDS: TIOTROPIUM BROMIDE 18 MCG CAPSULES IH SCH (18:04)
[2018-04-07] MEDS: methylPREDNISolone NA SUCC 125 MG/2 ML VIAL IVPUSH SCH (22:37)
[2018-04-07] MEDS: BUDESONIDE/FORMETEROL FUMARATE 160/4.5 mcg INHALER IH SCH (22:37)
[2018-04-08] MEDS ORDERED: methylPREDNISolone NA SUCC 125 MG/2 ML VIAL ONE (02:31)
[2018-04-08] MEDS: methylPREDNISolone NA SUCC 125 MG/2 ML VIAL IVPUSH SCH ×2 (02:38→10:20)
--- NOTE | 2018-04-08 09:03 | PN ---
Progress Note, Physician Chief Complaint: pt lying in bed Sob improved Feels better - Current Medication List Current Medications: Active Medications Albuterol Sulfate (Ventolin 0.083% Nebulizer Soln -) 1 amp NEB Q4H PRN PRN Reason: SHORT OF BREATH/WHEEZING Amlodipine Besylate (Norvasc -) 10 mg PO DAILY [facility] Atorvastatin Calcium (Lipitor -) 10 mg PO HS [facility] Budesonide/Formoterol Fumarate (Symbicort 160/4.5mcg -) 2 puff IH BID [facility] Last Admin: 04/07/18 22:37 Dose: 2 puff Losartan Potassium (Cozaar -) 100 mg PO DAILY [facility] Methylprednisolone Sodium Succinate (Solu-Medrol -) 60 mg IVPUSH Q6H-IV [facility] Last Admin: 04/08/18 02:38 Dose: 60 mg Nebivolol (Bystolic -) 10 mg PO DAILY [facility] Nicotine (Nicoderm Patch -) 14 mg TD DAILY [facility] Last Admin: 04/07/18 18:04 Dose: Not Given Tiotropium [place] (Spiriva -) 1 puff IH DAILY [facility] Last Admin: 04/07/18 18:04 Dose: 1 inh - Objective Vital Signs: Vital Signs Temperature 97.6 F 04/07/18 11:17 Pulse Rate 98 H 04/07/18 22:21 Respiratory Rate 24 04/07/18 22:21 Blood Pressure 142/62 04/07/18 22:21 O2 Sat by Pulse Oximetry (%) 100 04/07/18 22:21 Constitutional: Yes: No Distress Eyes: Yes: Conjunctiva Clear HENT: Yes: Atraumatic Neck: Yes: Supple Cardiovascular: Yes: Regular Rate and Rhythm Respiratory: Yes: Regular, On Nasal O2, Rhonchi Gastrointestinal: Yes: Normal Bowel Sounds, Soft Musculoskeletal: Yes: WNL Extremities: Yes: Delayed Capillary Refill Edema: No Peripheral Pulses WNL: Yes Neurological: Yes: WNL, Alert Psychiatric: Yes: Alert, Oriented Labs: CBC, BMP 04/07/18 12:19 04/07/18 12:19 - ....Imaging Chest X-ray: Report Reviewed EKG: Report Reviewed Assessment/Plan COPD excacerbation with asthma HTN Hypercholestrolemia Pul nodules PLAN Continue bronchodialators ,continue IV steroid Continue home meds OXygen Pul F/U
--- NOTE | 2018-04-08 09:48 | HP ---
DATE OF ADMISSION: 04/07/2018 HISTORY OF PRESENT ILLNESS: Patient is a 63-year-old female with a significant past medical history of COPD, hypertension, tobacco use, asthma, status post bladder cancer treatment in 2014, who presented to the emergency department with complaints of 3 days of worsening shortness of breath and cough. As per the patient, 3 days ago, she began noticing upper respiratory symptoms with airway congestion and cough. As per the patient, high humidity makes her worse. There was increasing dyspnea, shortness of breath, and cough and productive sputum. Patient was seen in the office and referred to the ER for further treatment. Patient is taking albuterol and Symbicort at home, but there was no relief. She had a similar episode in the past and admitted to [facility]. At that time, she had CT chest that showed emphysematous changes. Patient denies any hemoptysis, no fever, no chest pain, no palpitation. In the emergency room, noted moderate respiratory distress. PAST MEDICAL HISTORY: Advanced COPD, hypertension, history of tobacco (currently still smoking), asthma, bladder carcinoma status post resection, and hypercholesterolemia. SURGICAL HISTORY: Resection of the bladder tumor. SOCIAL HISTORY: History of smoking, still patient is smoking. ALLERGIES: CIPROFLOXACIN and HYDROCHLOROTHIAZIDE. MEDICATIONS: Patient is on albuterol, Ventolin HFA inhaler, amlodipine 10 mg, atenolol 25 mg daily, losartan 100 mg daily, multivitamin, Symbicort, Spiriva. REVIEW OF SYSTEMS: General: History of mild fever. No weakness. Head and Neck: Nasal congestion. Cardiovascular: No palpitations. Respiratory: Shortness of breath, cough, wheezing. No hemoptysis. Gastrointestinal: No nausea, no vomiting. Genitourinary: No dysuria, no hematuria. Musculoskeletal: Nothing significant. Neurological: No history of loss of consciousness, no vertigo, no dizziness. Endocrine: Nothing significant. PHYSICAL EXAMINATION: Vital signs: In the ER temperature 97.6, pulse 77 per minute, respirations 26, blood pressure 135/80, saturation 100%. General: Alert, fully oriented, mild distress. Labored breathing. Head and Neck: Normocephalic. Eyes: SILAS. ENT: Nasal congestion. Neck: Supple. No JVD. Lungs: Diffuse bilateral expiratory wheezing, rhonchi bilateral, mild distress. Heart: 1st and 2nd sound normal. No murmur. Abdomen: Soft, no tenderness, no distension. Bowel sounds present. Extremities: No pedal edema. Neurological: Alert and oriented x3. Cranial nerves 2-12 normal. Normal speech. Normal gait. LABORATORIES: WBC 5.3, hemoglobin 14.5, hematocrit 43, platelets 382, neutrophils 48.4. Chemistries: Sodium 140, potassium 3.8, chloride 106, carbon dioxide 29, BUN 12, creatinine 1.2, lactic acid 2.1, sugar 100, AST/ALT normal, D-dimer 358. Blood gas pH 7.58, pCO2 of 27.6, pO2 of 71.9, bicarbonate 25.7. Chest x-ray: No acute findings. EKG shows when compared with the old EKG T-wave deviation. In the emergency room, patient was given the nebulizer treatment, oxygen, and IV Solu-Medrol. ADMITTING DIAGNOSIS: Patient admitted on the floor with admitting diagnosis of acute exacerbation of chronic obstructive pulmonary disease, acute respiratory distress, hypertension, tobacco use, history of pulmonary nodules. PLAN: IV steroid, inhaled bronchodilator, supplemental oxygen, obtain followup CT chest, IV fluids, smoking cessation consult, nicotine patch. Patient is stable on the floor. Sara [id number]
--- NOTE | 2018-04-08 09:49 | PN ---
Progress Note, Physician History of Present Illness: PULMONARY ALERT,FEELING BETTER,-SOB,-CP,-COUGH - Current Medication List Current Medications: Active Medications Albuterol Sulfate (Ventolin 0.083% Nebulizer Soln -) 1 amp NEB Q4H PRN PRN Reason: SHORT OF BREATH/WHEEZING Amlodipine Besylate (Norvasc -) 10 mg PO DAILY [facility] Atorvastatin Calcium (Lipitor -) 10 mg PO HS [facility] Budesonide/Formoterol Fumarate (Symbicort 160/4.5mcg -) 2 puff IH BID [facility] Last Admin: 04/07/18 22:37 Dose: 2 puff Losartan Potassium (Cozaar -) 100 mg PO DAILY [facility] Methylprednisolone Sodium Succinate (Solu-Medrol -) 60 mg IVPUSH Q6H-IV [facility] Last Admin: 04/08/18 02:38 Dose: 60 mg Nebivolol (Bystolic -) 10 mg PO DAILY [facility] Nicotine (Nicoderm Patch -) 14 mg TD DAILY [facility] Last Admin: 04/07/18 18:04 Dose: Not Given Tiotropium [place] (Spiriva -) 1 puff IH DAILY [facility] Last Admin: 04/07/18 18:04 Dose: 1 inh - Objective Vital Signs: Vital Signs Temperature 97.6 F 04/07/18 11:17 Pulse Rate 98 H 04/07/18 22:21 Respiratory Rate 24 04/07/18 22:21 Blood Pressure 142/62 04/07/18 22:21 O2 Sat by Pulse Oximetry (%) 100 04/07/18 22:21 Constitutional: Yes: Well Nourished, Calm Eyes: Yes: WNL HENT: Yes: WNL Neck: Yes: WNL Cardiovascular: Yes: Regular Rate and Rhythm, S1, S2 Respiratory: Yes: CTA Bilaterally Gastrointestinal: Yes: Normal Bowel Sounds, Soft Extremities: Yes: WNL Edema: No Labs: CBC, BMP 04/07/18 12:19 04/07/18 12:19 Problem List - Problems (1) Acute exacerbation of chronic obstructive airways disease with asthma Code(s): J44.1 - CHRONIC OBSTRUCTIVE PULMONARY DISEASE W (ACUTE) EXACERBATION; J45.901 - UNSPECIFIED ASTHMA WITH (ACUTE) EXACERBATION (2) Hypertensive cardiovascular disease Code(s): I11.9 - HYPERTENSIVE HEART DISEASE WITHOUT HEART FAILURE Qualifiers: Heart failure presence: without heart failure Qualified Code(s): I11.9 - Hypertensive heart disease without heart failure (3) Sleep apnea Code(s): G47.30 - SLEEP APNEA, UNSPECIFIED Qualifiers: Sleep apnea type: obstructive Qualified Code(s): G47.33 - Obstructive sleep apnea (adult) (pediatric) (4) Tobacco abuse counseling Code(s): Z71.6 - TOBACCO ABUSE COUNSELING Assessment/Plan IMP DYSPNEA IMPROVED COPD EXACERBATION IMPROVED HTN SMOKER H/O BLADDER CA S/P RESECTION H/O PULMONARY NODULES MANUEL PLAN PREDNISONE 40 MG DAILY WITH TAPER INHALED BRONCHODILATORS O2 SMOKING CESSATION COUNSELED NICODERM PATCH FORMAL SLEEP STUDIES OUTPATIENT DR LAM Problem List - Problems (1) Acute exacerbation of chronic obstructive airways disease with asthma Code(s): J44.1 - CHRONIC OBSTRUCTIVE PULMONARY DISEASE W (ACUTE) EXACERBATION; J45.901 - UNSPECIFIED ASTHMA WITH (ACUTE) EXACERBATION (2) Hypertensive cardiovascular disease Code(s): I11.9 - HYPERTENSIVE HEART DISEASE WITHOUT HEART FAILURE Qualifiers: Heart failure presence: without heart failure Qualified Code(s): I11.9 - Hypertensive heart disease without heart failure (3) Sleep apnea Code(s): G47.30 - SLEEP APNEA, UNSPECIFIED Qualifiers: Sleep apnea type: obstructive Qualified Code(s): G47.33 - Obstructive sleep apnea (adult) (pediatric) (4) Tobacco abuse counseling Code(s): Z71.6 - TOBACCO ABUSE COUNSELING
[2018-04-08] MEDS ORDERED: LOSARTAN POTASSIUM 50 MG TABLET (FP) PO SCH (10:00)
[2018-04-08] MEDS ORDERED: amLODIPine BESYLATE 10 MG TABLET (FP) PO SCH (10:00)
[2018-04-08] MEDS ORDERED: NEBIVOLOL 10 MG TABLET (FP) PO SCH (10:00)
[2018-04-08] MEDS: NICOTINE 14 MG/24 HOURS TOPICAL PATCH TD SCH (10:20)
[2018-04-08] MEDS: TIOTROPIUM BROMIDE 18 MCG CAPSULES IH SCH (10:20)
[2018-04-08] MEDS: BUDESONIDE/FORMETEROL FUMARATE 160/4.5 mcg INHALER IH SCH (10:21)
[2018-04-08 10:23] VITALS: BP 142/78; PULSE 74; TEMP 98.5
--- NOTE | 2018-04-08 15:14 | DS ---
DATE OF ADMISSION: 04/07/2018 DATE OF DISCHARGE: 04/08/2018 Patient is a 63-year-old female with past medical history of COPD; hypertension; longstanding history of tobacco use, asthma, currently smoking; history of bladder cancer status post treatment, admitted with shortness of breath and wheezing, diagnosed to have COPD exacerbation. At the time of admission, her blood pressure was 130/50, respirations 20, afebrile. Clinical examination: Neck: Supple. Head and Neck: Normal. Heart: First and second sounds normal. Chest: Scattered bilateral wheeze. Abdomen: Soft. No tenderness. No distention. Extremities: No edema. Regarding the labs, WBC 5.3, hemoglobin 14.5, hematocrit 43.2, platelets 382. Blood gas showed pH 7.58, pCO2 of 27, pO2 of 71, bicarbonate 21, saturation 96.5%. Chemistry: BUN 12, creatinine 1.2. Chest x-ray revealed no infiltrate, no effusions. So, admitted with acute respiratory distress secondary to exacerbation of chronic obstructive pulmonary disease and asthma, history of hypertension, tobacco, and history of pulmonary nodules. Patient was treated with IV steroid, inhaled bronchodilators, supplemental oxygen, IV fluid, and smoking cessation counseling done. Patient feels better. Recommend a repeat followup CT chest, but the patient requested discharge home, and patient discharged on home medication in a stable condition. Recommend to follow with Pulmonary and PMD in 1 week. Patient sent home on home medication and tapering dose of prednisone for 7 days. Sara [id number]
[2018-04-08] MEDS ORDERED: ATORVASTATIN CA 10 MG TABLET (FP) PO SCH (22:00)
== END 2018-04-08 10:40 | disposition home or self-care (01) | DRG 190 ==
LOC: JER 11:14 → JERBED 13:50
PROVIDERS: ADMIT Family Medicine; ATTEND Family Medicine
DX: J44.1 Chronic obstructive pulmonary disease with (acute) exacerbation (principal); J96.01 Acute respiratory failure with hypoxia; E87.3 Alkalosis; Z85.51 Personal history of malignant neoplasm of bladder; F17.210 Nicotine dependence, cigarettes, uncomplicated; G47.33 Obstructive sleep apnea (adult) (pediatric); E78.00 Pure hypercholesterolemia, unspecified; R91.1 Solitary pulmonary nodule; I11.9 Hypertensive heart disease without heart failure
CPT/HCPCS: 36415; 36600; 71045-TC-FY; 80053; 82550; 82803; 83605; 84484; 85025; 85379; 93005; 93010; 99285-25; J7620

== ENCOUNTER 2018-07-24 09:17 | Emergency (ER) | payer OTHER ==
[2018-07-24 09:33] VITALS: TEMP 98.8; BMI 35.9
[2018-07-24] MEDS ORDERED: ALBUTEROL SO4 2.5/IPRATROPIUM 0.5 INH SOL 3 ML VIAL.NEB. NEB ONE ×2 (10:15→10:20)
--- NOTE | 2018-07-24 10:15 | PDOC ---
Attending Attestation - Resident Resident Name: Mark Brewer - ED Attending Attestation I have performed the following: I have examined & evaluated the patient, The case was reviewed & discussed with the resident, I agree w/resident's findings & plan, Exceptions are as noted - HPI HPI: 07/24/18 11:32 63 y/o w/ a significant past medical history of chronic bronchitis, HTN, HLD, and Bladder CA (s/p TURBT 2014), Presents to the emergency department with cough white sputum difficulty breathing. Patient states this feels like her typical bronchitis exacerbations. Symptoms are mild to moderate persistent constant were not alleviated by her home nebulizer treatments. She denies any fever or colored sputum chest pain or exertional symptoms. ROS: A complete review of 10 out of 10 review of systems is taken and is negative apart from what is previously mentioned below and in the HPI. - Physicial Exam PE: 07/24/18 13:19 Vitals: Triage Vital signs reviewed General Appearance: no acute distress, well nourished well developed, Head: Atraumatic, Neck: Supple;No Nucal rigidity Chest Wall: Nontender Cardiac: Regular rate and rhythym, no murmurs, no rubs, no gallops, Lungs: Coarse transmitted upper airway sounds, bronchospasm only with cough,, good air movement bilaterally, Abdomen: Soft, non distended, normal bowel sounds, non tender to palpation Extremities: Full range of motion to all extremities, no cyanosis, clubbing, or edema Skin: Warm and dry, no rashes or lesions, no rash, no petechiae - Medical Decision Making 07/24/18 13:24 History and examination consistent with chronic bronchitis given age and risk factors we'll check an EKG troponin chest x-ray treated with DuoNeb steroids observing reassessed EKG nonischemic chest x-ray no acute pathology troponin negative labs otherwise within normal limits History examination consistent with bronchitis exacerbation we'll treat with Z- Jayjay steroids nebs at home patient will follow-up with her unclaimed property manager in 2-3 days. Findings, the need for follow-up, strict return instructions discussed with patient. Heart Score/ECG Review - History History: Slightly suspicious - Electrocardiogram EKG: Normal - Age Age: 45-65 - Risk Factors Risk Factors Heart Score: Yes Hx Hypertension, Yes Smoking History Based on the list above the patient has:: >/=3 risk factors or Hx atherosclerotic disease - Troponin Troponin: </= normal limit - Score Heart Score - Total: 3 - ECG Impressions Comment:: 07/24/18 13:21 EKG performed at 9:31 AM. Demonstrates normal sinus rhythm 95 bpm, [place] interval 136, QRS 82, QTC 467, no ST elevations no T-wave inversions. Interpreted by me.
[2018-07-24] MEDS ORDERED: predniSONE 20 MG TABLET (UD) PO ONE (10:21)
--- NOTE | 2018-07-24 10:24 | PDOC ---
History of Present Illness - History of Present Illness Initial Comments: 07/24/18 10:25 Pt is a 63 y/o lady w/ a significant past medical history of chronic bronchitis , HTN, HLD, and Bladder CA (s/p TURBT 2014). Pt presents to [facility] c/o shortness of breath and dyspnea on exertion since this past Saturday. Pt endorses she "felt a cold coming on" and began to experience her symptoms. Pt endorses throat and stomach pain 2/2 to her chronic coughing. Symbicort and Ventolin inhalers have provided partial relief. Denies cp, nausea, fever, chills , or dizziness. Allergies: hydrochlorothiazide, Ciprofloxacin Past surgical history: Transurethral Resection Bladder Tumor Social history: Smokes 10 Cigarettes/Day PCP: Dr. Odonnell <Mark Brewer - Last Filed: 07/24/18 11:25> <Benjamin Ivey - Last Filed: 07/24/18 12:52> - General Chief Complaint: Shortness of Breath Stated Complaint: SOB Time Seen by Provider: 07/24/18 09:54 Past History - Past Medical History Anemia: No Asthma: Yes (SECONDARY TO BRONCHITIS) Cancer: Yes (BLADDER) Cardiac Disorders: No CVA: No COPD: Yes CHF: No Dementia: No Diabetes: No GI Disorders: No Disorders: No HTN: Yes Hypercholesterolemia: Yes Liver Disease: No Seizures: No Thyroid Disease: No - Surgical History Abdominal Surgery: Yes (BLADDER) Appendectomy: No Cardiac Surgery: No Cholecystectomy: No Lung Surgery: No Neurologic Surgery: No Orthopedic Surgery: No - Suicide/Smoking/Psychosocial Hx Smoking History: Current some day smoker Have you smoked in the past 12 months: Yes Number of Cigarettes Smoked Daily: 6 Information on smoking cessation initiated: No 'Breaking Loose' booklet given: 08/22/17 Hx Alcohol Use: No Drug/Substance Use Hx: No Substance Use Type: None Hx Substance Use Treatment: No <Mark Brewer - Last Filed: 07/24/18 11:25> <Benjamin Ivey - Last Filed: 07/24/18 12:52> - Past Medical History Allergies/Adverse Reactions: Allergies Allergy/AdvReac Type Severity Reaction Status Date / Time ciprofloxacin [From Cipro] Allergy Severe Itching Verified 07/24/18 09:29 ciprofloxacin HCl Allergy Severe Itching Verified 07/24/18 09:29 [From Cipro] hydrochlorothiazide Allergy Severe Itching Verified 07/24/18 09:29 Home Medications: Ambulatory Orders Albuterol Sulfate Inhaler - [Ventolin HFA Inhaler -] 1 - 2 inh PO PRN PRN Amlodipine Besylate 10 mg PO DAILY 09/12/15 Atenolol [Tenormin -] 25 mg PO DAILY 09/12/15 Losartan Potassium 100 mg PO DAILY 09/12/15 Multivitamins [Multivit ([facility] Formulary)] 1 tab PO DAILY 09/12/15 Budesonide/Formeterol Fumarate [SYMBICORT 160/4.5mcg -] 1 inh IH BID #3 inhaler 08/26/17 Tiotropium [place] [Spiriva Respimat] 4 gm IH DAILY #1 mist.inhal 08/26/17 Acetaminophen [Tylenol] 650 mg PO QID PRN 07/24/18 Azithromycin 250 mg PO DAILY 4 Days #4 tablet 07/24/18 Azithromycin 500 mg PO ONCE 1 Days #1 tablet 07/24/18 Prednisone [Prednisone 50 MG TABLETS] 50 mg PO DAILY 4 Days #4 tablet 07/24/18 *Physical Exam - Vital Signs Last Vital Signs Temp Pulse Resp BP Pulse Ox 98.8 F 99 H 20 111/76 98 07/24/18 09:17 07/24/18 09:59 07/24/18 09:59 07/24/18 09:59 07/24/18 09:59 <Mark Brewer - Last Filed: 07/24/18 11:25> - Vital Signs Last Vital Signs Temp Pulse Resp BP Pulse Ox 98.8 F 103 H 18 127/89 100 07/24/18 09:17 07/24/18 12:31 07/24/18 12:31 07/24/18 12:31 07/24/18 12:31 <Benjamin Ivey - Last Filed: 07/24/18 12:52> ED Treatment Course - LABORATORY CBC & Chemistry Diagram: 07/24/18 10:40 07/24/18 10:40 <Mark Brewer - Last Filed: 07/24/18 11:25> - LABORATORY CBC & Chemistry Diagram: 07/24/18 10:40 07/24/18 10:40 - ADDITIONAL ORDERS Additional order review: Laboratory Results 07/24/18 07/24/18 10:40 10:40 Sodium 142 Potassium 4.2 Chloride 105 Carbon Dioxide 25 Anion Gap 12 BUN 18 Creatinine 1.3 H Creat Clearance w eGFR 41.37 Random Glucose 112 H Calcium 9.2 Total Bilirubin 0.7 AST 31 ALT 39 Alkaline Phosphatase 116 Troponin I < 0.02 Total Protein 7.5 Albumin 4.1 07/24/18 10:40 RBC 4.97 MCV 90.7 MCHC 33.5 RDW 14.3 MPV 7.4 L Neutrophils % 53.4 Lymphocytes % 27.6 D Monocytes % 17.7 H Eosinophils % 0.1 D Basophils % 1.2 - RADIOLOGY Radiology Studies Ordered: Category Date Time Status CXRPORT [CHEST X-RAY PORTABLE*] [RAD] Stat Radiology 07/24/18 10:17 Completed - Medications Given in the ED: ED Medications Discontinued Medications Generic Name Dose Route Start Last Admin Trade Name Freq PRN Reason Stop Dose Admin Albuterol/Ipratropium 1 amp 07/24/18 10:15 07/24/18 10:33 Duoneb - NEB 07/24/18 10:16 1 amp ONCE ONE Administration Prednisone 50 mg 07/24/18 10:21 07/24/18 10:44 Deltasone - PO 07/24/18 10:22 50 mg ONCE ONE Administration <Benjamni Ivey - Last Filed: 07/24/18 12:52> Medical Decision Making - Medical Decision Making 07/24/18 11:09 Duoneb 1 AMP Prednisone 40 mg -EKG results pending -Chest X-Ray pending. 07/24/18 11:25 Chest X-Ray--No acute pathology appreciated. <Mark Brewer - Last Filed: 07/24/18 11:25> *DC/Admit/Observation/Transfer <Mark Brewer - Last Filed: 07/24/18 11:25> - Discharge Dispostion Decision to Admit order: No <Benjamin Ivey - Last Filed: 07/24/18 12:52> Diagnosis at time of Disposition: Mucopurulent chronic bronchitis - Discharge Dispostion Disposition: HOME Condition at time of disposition: Good - Referrals Referrals: Bryan Odonnell MD [Primary Care Provider] - Davin Matamoros MD [Staff Physician] - - Patient Instructions Printed Discharge Instructions: Chronic Bronchitis Additional Instructions: Take prednisone as prescribed. Take Z-Jayjay as prescribed. Use home nebulizers as directed. Follow-up with your talend etl developer Dr. Matamoros tomorrow or Saturday. Return to the ED for any severe worsening symptoms difficulty breathing chest pain or for any concerns. - Post Discharge Activity
[2018-07-24] MEDS ORDERED: predniSONE 20 MG TABLET (UD) ONE (10:41)
[2018-07-24 10:44] LABS: BASO % 1.2 % (0-2.0); EOS % 0.1 % (0-4.5); HEMATOCRIT 45.1 % (32.4-45.2); HEMOGLOBIN 15.1 GM/dL (10.7-15.3); LYMPH % 27.6 % (8-40); MCH 30.4 pg (25.7-33.7); MCHC 33.5 g/dl (32.0-36.0); MEAN CELL VOLUME 90.7 fl (80-96); MEAN PLT VOLUME 7.4 fl (7.5-11.1); MONO % 17.7 % (3.8-10.2); NEUT % 53.4 % (42.8-82.8); PLATELET COUNT 288 K/MM3 (134-434); RBC 4.97 M/mm3 (3.60-5.2); RDW 14.3 % (11.6-15.6); WHITE BLOOD COUNT 4.9 K/mm3 (4.0-10.0)
[2018-07-24 12:15] LABS: ALBUMIN 4.1 g/dl (3.4-5.0); ANION GAP 12 MMOL/L (8-16); BILIRUBIN,TOTAL 0.7 mg/dL (0.2-1.0); BLOOD UREA NITROGEN 18 mg/dL (7-18); CALCIUM 9.2 mg/dL (8.5-10.1); CHLORIDE 105 mmol/L (98-107); CO2 25 mmol/L (21-32); CREATININE 1.3 mg/dL (0.55-1.02); GLUCOSE,RANDOM 112 mg/dL (74-106); POTASSIUM 4.2 mmol/L (3.5-5.1); SGOT/AST 31 U/L (15-37); SGPT/ALT 39 U/L (12-78); SODIUM 142 mmol/L (136-145); TOT PROT 7.5 g/dl (6.4-8.2)
[2018-07-24 12:16] LABS: ALK PHOS 116 U/L (45-117)
[2018-07-24 12:31] VITALS: BP 127/89; PULSE 103
--- NOTE | 2018-07-24 13:42 | EKG ---
Test Reason : Blood Pressure : / mmHG Vent. Rate : 095 BPM Atrial Rate : 095 BPM P-R Int : 136 ms QRS Dur : 082 ms QT Int : 372 ms P-R-T Axes : 082 084 082 degrees QTc Int : 467 ms POOR DATA QUALITY, INTERPRETATION MAY BE ADVERSELY AFFECTED NORMAL SINUS RHYTHM NONSPECIFIC ST AND T WAVE ABNORMALITY ABNORMAL ECG WHEN COMPARED WITH ECG OF 07-APR-2018 14:11, T WAVE INVERSION LESS EVIDENT IN ANTERIOR LEADS Confirmed by J LUIS KAT MD ([id number]) on 07/24/2018 1:42:07 PM Referred By: Confirmed By:J LUIS KAT MD
== END 2018-07-24 13:04 | disposition home or self-care (01) ==
LOC: JER 09:17
PROC: 3E0F7GC Introduction of Other Therapeutic Substance into Respiratory Tract, Via Natural or Artificial Opening (ICD-10-PCS; principal; 2018-07-24)
DX: J41.1 Mucopurulent chronic bronchitis (principal); I10 Essential (primary) hypertension; E78.5 Hyperlipidemia, unspecified; E78.00 Pure hypercholesterolemia, unspecified; Z85.51 Personal history of malignant neoplasm of bladder
CPT/HCPCS: 36415; 71045-TC-FY; 80053; 84484; 85025; 93005; 93010; 99283-25; J7620

== ENCOUNTER 2020-06-10 04:43 | Day surgery (SDC) | payer OTHER ==
[2020-06-09 10:18] VITALS: BMI 36.8
[2020-06-10] MEDS ORDERED: THROMBIN (BOVINE) 5,000 UNIT VIAL TP ONE ×2 (08:00→11:41)
[2020-06-10] MEDS ORDERED: LIDOCAINE 1%/EPI 1:100000 (20 ML MULTI DOSE VIAL) ONE (08:00)
[2020-06-10] MEDS ORDERED: DESFLURANE GAS 240 ML BOTTLE IH ONE (08:26)
[2020-06-10] MEDS ORDERED: PROPOFOL 20 ML ONE ×3 (08:30→08:39)
[2020-06-10] MEDS ORDERED: SUCCINYLCHOLINE CHLORIDE 200 MG/10 ML SYRINGE ONE (08:30)
[2020-06-10] MEDS ORDERED: ROCURONIUM BROMIDE 50 MG/5 ML SYRINGE ONE (08:30)
[2020-06-10] MEDS ORDERED: MIDAZOLAM HCL 2 MG/2 ML SINGLE DOSE VIAL ONE ×2 (08:30→09:51)
--- NOTE | 2020-06-10 09:57 | HP ---
History & Physical Update - History History: No Change - Physical Physical: No Change - Assessment Assessment: No Change - Plan Plan: No Change (no change since preop eval on 06/08, no h/o dvt/pe)
[2020-06-10] MEDS ORDERED: ceFAZolin SODIUM 1 GM VIAL IVPB ONE (11:05)
[2020-06-10] MEDS ORDERED: LIDO 2%/EPI 1:200000 PRESRVFRE (20 ML SDVIAL) INF ONE ×2 (11:13)
[2020-06-10] MEDS ORDERED: BUPIVACAINE HCL/PF 0.5% (5 MG/ML) 30 ML VIAL IJ ONE ×2 (11:13)
[2020-06-10] MEDS ORDERED: LACTATED RINGERS SOLUTION 1,000 ML IV SCH (11:30)
[2020-06-10] MEDS ORDERED: ONDANSETRON 4 MG/2 ML VIAL IVPUSH PRN (11:30)
[2020-06-10] MEDS ORDERED: GLYCOPYRROLATE 0.2 MG/1 ML VIAL ONE ×2 (12:19→12:21)
[2020-06-10] MEDS ORDERED: NEOSTIGMINE METHYLSULFATE 0.5 MG/ML - 10 ML MDV ONE (12:19)
[2020-06-10] MEDS ORDERED: DEXAMETHASONE SOD PHOSPHATE 4 MG/1 ML VIAL ONE (12:22)
[2020-06-10] MEDS ORDERED: ACETAMINOPHEN INJECTION 100 ML IVPB ONE (13:57)
[2020-06-10] MEDS ORDERED: oxyCODONE HCL 5 MG TABLET ONE ×2 (13:57→14:23)
[2020-06-10] MEDS: oxyCODONE HCL 5 MG TABLET PO PRN ×2 (14:02→14:30)
[2020-06-10] MEDS ORDERED: ACETAMINOPHEN 1000 MG/100 ML VIAL (NON FORMULARY) IVPB ONE (14:03)
[2020-06-10] MEDS ORDERED: ACETAMINOPHEN 1000 MG/100 ML VIAL (NON FORMULARY) IVPB SCH (14:08)
[2020-06-10 15:55] VITALS: BP 136/74; PULSE 76; TEMP 98
--- NOTE | 2020-06-10 18:53 | OP ---
Operative Note - Note: Operative Date: 06/10/20 Pre-Operative Diagnosis: Thyroid nodules Operation: Total thyroidectomy Findings: as dictated Post-Operative Diagnosis: Same as Pre-op Surgeon: Gilberto Kruse Corporate Risk Analyst: Mario Ford Anesthesiologist/FRETTED INSTRUMENT INSPECTOR: Refugio Singh Anesthesia: General, Local Estimated Blood Loss (mls): 10 Fluid Volume Replaced (mls): 1 (L LR) Operative Report Dictated: Yes
--- NOTE | 2020-06-11 00:20 | OP ---
DATE OF OPERATION: 06/10/2020 SURGICAL ATTENDING: Lonny Cool MD. SEO EXECUTIVE: ALFREDO Blum. PREOPERATIVE DIAGNOSIS: Thyroid nodules. POSTOPERATIVE DIAGNOSIS: Thyroid nodules. ANESTHESIA: General endotracheal anesthesia. PROCEDURE: Total thyroidectomy and neck ultrasound. DESCRIPTION OF PROCEDURE: The patient was taken into the operating room, placed in supine position, endotracheally intubated. Neck ultrasound was performed, showing a bilateral thyroid enlarged nodules. The neck was then prepped and draped in the usual sterile fashion. Local anesthesia was administered and a horizontal incision was made in an anterior mid-neck skin crease. This was carried down through subcutaneous tissues and platysma. Subplatysmal flaps were raised superiorly and inferiorly, and flap hooks were placed for exposure. The median raphe was incised, and the strap muscles were elevated off the thyroid gland bilaterally. Dissection began on the right side where the recurrent laryngeal nerve, superior laryngeal nerve, and parathyroid glands were identified and preserved. The superior, posterior and inferior attachments to the right thyroid lobe were transected. The right thyroid lobe was lifted off the trachea and transected at the isthmus. In this way it was removed, inspected for parathyroid tissue; none was found. It was then sent to pathology for permanent evaluation. Dissection continued on the left side, where the recurrent laryngeal nerve, superior laryngeal nerve and parathyroid glands were identified and preserved. The superior, posterior and inferior attachments to the left thyroid lobe were transected. The left thyroid lobe was lifted up off the trachea and from the trachea with electrocautery. A large isthmus nodule was resected in continuity with the left lobe as well. In this way, the left lobe and the isthmus were removed together. The specimen was examined, and no parathyroid tissue was found. It was then sent to pathology for evaluation. Valsalva maneuver was performed, and hemostasis was assured. Gelfoam and thrombin was placed. The wound was then closed in 3 layers. Dermabond was placed. The patient was then awakened, extubated, and taken to recovery in stable condition. Dr. Cool, the attending surgeon, was present throughout the entire procedure. LONNY COOL M.D. [id number]
--- NOTE | 2020-06-13 12:57 | SURG ---
Surgery Travelift Operator Note Travelift Operator: Mario Ford PA-C (Suzy) Date of Service: 06/10/20 Diagnosis: Thyroid nodules Procedure: Operation: Total thyroidectomy I was present for the entirety of the operative procedure. For further detail, please refer to operative report. Visit type - Case Type Case Type: Scheduled - Emergency Emergency Visit: No - New patient This patient is new to me today: Yes Date on this admission: 06/13/20 - Critical Care Critical Care patient: No
--- NOTE | 2020-06-16 10:05 | PATH ---
Surgical Pathology Report Patient Name: TAI ALFONSO [facility]. Rec. #: [id number] /Age/Gender: 1955 (Age: 65) / F Account: [id number] Location: [facility] SURGICAL Taken: 06/10/2020 Received: 06/10/2020 Reported: 06/16/2020 Physicians: Gilberto Kruse M.D. Specimen(s) Received A: RIGHT THYROID LOBE B: LEFT THYROID LOBE, ISTHMUS Clinical History Thyroid nodule Final Diagnosis A. THYROID, RIGHT LOBE, THYROIDECTOMY: BENIGN THYROID WITH MULTINODULAR HYPERPLASIA, FOCAL CHRONIC INFLAMMATION, FOCAL DEPOSITION OF HEMOSIDERIN-LADEN MACROPHAGES, AND FOCAL HURTHLE CELL METAPLASIA. SEE COMMENT. B. THYROID, LEFT LOBE, ISTHMUS, THYROIDECTOMY: BENIGN THYROID WITH MULTINODULAR HYPERPLASIA, FOCAL CHRONIC INFLAMMATION INCLUDING FEW GIANT CELLS, MILD LYMPHOPLASMACYTIC INFILTRATE, AND REACTIVE CHANGES. SKELETAL MUSCLE WITHOUT SIGNIFICANT PATHOLOGIC FINDINGS NOTED. SEE COMMENT. Comment: Foci of chronic inflammation are non-specific. Although may represent changes of prior biopsy, the possibility of chronic lymphocytic thyroiditis cannot be fully excluded in this material. Provided prior left thyroid biopsy report reviewed. Suggest clinical, radiologic, and serologic correlation. Electronically Signed Sue Rodriguez M.D. Gross Description A. Received in formalin labeled "right thyroid lobe," is a 26 g, 6.0 x 3.2 x 2.8 cm thyroid lobe. The outer surface is red-brown and intact. Sectioning reveals multiple heterogeneous, focally hemorrhagic colloid nodules. Some of the nodules focally abut the outer capsule. The remaining thyroid parenchyma is red-brown and beefy. House Detective sections are sequentially submitted from superior to inferior in 8 cassettes. B. Received in formalin labeled "left thyroid lobe and isthmus," is a 44 g, 5.5 x 4.5 x 3.1 cm thyroid lobe and possible isthmus. The outer surface is red-brown and intact. Sectioning reveals multiple heterogeneous, focally hemorrhagic colloid nodules. Some of the nodules focally abuts the outer capsule. The remaining thyroid parenchyma is red-brown and beefy. House Detective sections are sequentially submitted in 9 cassettes. DL/06/10/2020 saudi/06/10/2020
== END 2020-06-10 16:03 | disposition home or self-care (01) ==
LOC: JASU-SURG 04:43
PROVIDERS: ATTEND Surgery
PROC: 0GBJ0ZZ Excision of Thyroid Gland Isthmus, Open Approach (ICD-10-PCS; 2020-06-10)
PROC: 0GTK0ZZ Resection of Thyroid Gland, Open Approach (ICD-10-PCS; principal; 2020-06-10 09:30)
DX: E04.2 Nontoxic multinodular goiter (principal)
CPT/HCPCS: 86850; 86900; 86901; 88307-TC; 94760; J0131

== ENCOUNTER 2021-06-09 04:54 | Day surgery (SDC) | payer OTHER ==
[2021-06-08 09:13] VITALS: BMI 36.3
[2021-06-09] MEDS ORDERED: LIDOCAINE 1%/EPI 1:100000 (20 ML MULTI DOSE VIAL) ONE (09:48)
[2021-06-09] MEDS ORDERED: MIDAZOLAM HCL 2 MG/2 ML SINGLE DOSE VIAL ONE (09:53)
[2021-06-09] MEDS ORDERED: PROPOFOL 20 ML ONE ×2 (09:53→10:44)
[2021-06-09] MEDS ORDERED: LIDOCAINE 1%/EPI 1:100000 (20 ML MULTI DOSE VIAL) IJ ONE ×2 (10:27)
[2021-06-09] MEDS ORDERED: oxyCODONE HCL 5 MG TABLET PO PRN (11:33)
[2021-06-09] MEDS ORDERED: LACTATED RINGERS SOLUTION 1,000 ML IV SCH (11:45)
[2021-06-09 11:47] VITALS: TEMP 97.3
[2021-06-09 12:17] VITALS: BP 128/84; PULSE 64
== END 2021-06-09 12:05 | disposition home or self-care (01) ==
LOC: JASU-SURG 04:54
PROVIDERS: ATTEND Surgery
PROC: 0HBDXZZ Excision of Right Lower Arm Skin, External Approach (ICD-10-PCS; principal; 2021-06-09 10:45)
DX: N60.01 Solitary cyst of right breast (principal); D18.01 Hemangioma of skin and subcutaneous tissue
CPT/HCPCS: 88305-TC; 94760

== ENCOUNTER 2023-06-25 15:26 | Emergency (ER) | payer OTHER ==
[2023-06-25 15:32] VITALS: BMI 36.3
[2023-06-25] MEDS ORDERED: SODIUM CHLORIDE 0.9% 500 ML INFUS.BAG IV ONE (16:34)
[2023-06-25] MEDS ORDERED: methylPREDNISolone NA SUCC 125 MG/2 ML VIAL IVPUSH ONE (16:41)
[2023-06-25] MEDS ORDERED: ALBUTEROL SO4 2.5/IPRATROPIUM 0.5 INH SOL 3 ML VIAL.NEB. NEB ONE (16:52)
[2023-06-25] MEDS ORDERED: methylPREDNISolone NA SUCC 125 MG/2 ML VIAL ONE ×2 (16:52→16:53)
[2023-06-25] MEDS: ALBUTEROL SO4 2.5/IPRATROPIUM 0.5 INH SOL 3 ML VIAL.NEB. NEB SCH (17:08)
[2023-06-25 17:26] LABS: BASO % 0.4 % (0-2.0); EOS % 4.7 % (0-4.5); HEMATOCRIT 45.4 % (32.4-45.2); HEMOGLOBIN 15.1 GM/dL (10.7-15.3); LYMPH % 16.8 % (8-40); MCH 30.4 pg (25.7-33.7); MCHC 33.4 g/dl (32.0-36.0); MEAN CELL VOLUME 91.1 fl (80-96); MONO % 12.8 % (3.8-10.2); NEUT % 65.3 % (42.8-82.8); PLATELET COUNT 351 10^3/uL (134-434); RBC 4.98 M/mm3 (3.60-5.2); RDW 15.2 % (11.6-15.6); WHITE BLOOD COUNT 6.4 K/mm3 (4.0-10.0)
[2023-06-25 17:31] LABS: EPI CELLS 19 /uL (0-25.1); HYALINE CASTS 0 /uL (0-3.1); PH,URINE 5.5 (5.0-8.0); URINE APPEARANCE CLEAR; URINE BACTERIA 121 /uL (0-1359); URINE BILIRUBIN NEGATIVE (NEGATIVE); URINE COLOR YELLOW; URINE GLUCOSE (UA) NEGATIVE (NEGATIVE); URINE KETONE NEGATIVE (NEGATIVE); URINE LEUK ESTERASE NEGATIVE (NEGATIVE); URINE NITRITE NEGATIVE (NEGATIVE); URINE PROTEIN NEGATIVE (NEGATIVE); URINE RBC 62 /uL (0-23.9); URINE UROBILINOGEN 0.2 mg/dL (0.2-1.0); URINE WBC 8 /uL (0-25.8)
[2023-06-25 17:44] LABS: POTASSIUM 4.1 mmol/L (3.5-5.1)
[2023-06-25 17:46] LABS: CALCIUM 9.8 mg/dL (8.5-10.1)
[2023-06-25 17:47] LABS: ALBUMIN 4.2 g/dl (3.4-5.0); BLOOD UREA NITROGEN 13.3 mg/dL (7-18); MAGNESIUM 2.4 mg/dL (1.8-2.4)
[2023-06-25 17:50] LABS: CREATININE 1.3 mg/dL (0.55-1.3)
[2023-06-25 17:51] LABS: TOT PROT 7.9 g/dl (6.4-8.2)
[2023-06-25 17:52] LABS: BILIRUBIN,TOTAL 0.7 mg/dL (0.2-1)
[2023-06-25] MEDS ORDERED: AZITHROMYCIN 250 MG TABLET PO ONE (18:22)
[2023-06-25] MEDS ORDERED: AZITHROMYCIN 500 MG TABLET ONE (18:36)
[2023-06-25 18:46] VITALS: BP 140/76; PULSE 87; RESP 20; TEMP 98
== END 2023-06-25 18:47 | disposition home or self-care (01) ==
LOC: JER 15:26
PROC: 3E0F7GC Introduction of Other Therapeutic Substance into Respiratory Tract, Via Natural or Artificial Opening (ICD-10-PCS; principal; 2023-06-25)
PROC: 3E033GC Introduction of Other Therapeutic Substance into Peripheral Vein, Percutaneous Approach (ICD-10-PCS; 2023-06-25)
DX: U07.1 COVID-19 (principal); J44.1 Chronic obstructive pulmonary disease with (acute) exacerbation; R06.02 Shortness of breath; R05.9 Cough, unspecified; R53.83 Other fatigue; R19.7 Diarrhea, unspecified; R07.9 Chest pain, unspecified
CPT/HCPCS: 36415; 71045-TC-FY; 80053; 81003; 83735; 84484; 85025; 87086; 93005; 93010; 99285-25

== ENCOUNTER 2024-04-22 04:06 | Day surgery (SDC) | payer OTHER ==
[2024-04-17 10:55] VITALS: BMI 36.1
[2024-04-22 10:10] VITALS: TEMP 97.2
[2024-04-22 10:26] VITALS: RESP 20
[2024-04-22 10:40] VITALS: BP 117/85; PULSE 73
== END 2024-04-22 10:46 | disposition home or self-care (01) ==
LOC: JASU-ENDO 04:06
PROVIDERS: ATTEND Internal Medicine Gastroenterology
PROC: 0DBK8ZX Excision of Ascending Colon, Via Natural or Artificial Opening Endoscopic, Diagnostic (ICD-10-PCS; principal; 2024-04-22 10:00)
DX: Z12.11 Encounter for screening for malignant neoplasm of colon (principal); D12.2 Benign neoplasm of ascending colon; K57.30 Diverticulosis of large intestine without perforation or abscess without bleeding; K64.8 Other hemorrhoids
CPT/HCPCS: 88305-TC